=== PATIENT | female | born 1955 | race American Indian/Alaskan Native ===

== ENCOUNTER 2017-05-07 18:23 | Emergency (ER) | payer MEDICARE, OTHER ==
[2017-05-07] MEDS ORDERED: PERCOCET 5/325 PO ONE (19:25)
--- NOTE | 2017-05-07 19:25 | Emergency Department Report ---
ED General Adult HPI - General Chief complaint: Pain General Stated complaint: EXTREMITY PAIN Time Seen by Provider: 05/07/17 18:50 Source: patient, EMS (ems notes not available at time of chart dictation), RN notes reviewed, old records reviewed Mode of arrival: Stretcher Limitations: Physical Limitation - History of Present Illness Initial comments: This is a 62-year-old female. She is previously known to me. Nephrology: Dr. Herrmann Past medical history: End-stage renal disease on dialysis Friday, Friday, Friday. Last dialysis was today, normal length and duration. Has a right- sided thoracic fall dialysis access catheter, also has a history of sacral ulcer , paraplegia, chronic extremity pain, and neuropathy. The patient presents to the ER with complaint of acute on chronic hand, forearm , shoulder pain. She reports that she ran out of her Neurontin and [place] prescriptions yesterday. She denies headache, neck pain, chest pain, abdominal pain, shortness of breath, irritative/obstructive urinary symptoms. The pain is described as "throbbing" and "burning", increases with palpation and range of motion, decreases with rest and pain medication. -: Gradual Location: left, right, upper extremity Radiation: extremity Quality: burning, aching Consistency: constant Improves with: medication, rest Worsens with: movement Associated Symptoms: denies other symptoms - Related Data Home Medications Medication Instructions Recorded Confirmed Last Taken Levothyroxine [Synthroid] 25 mcg PO QDAY 06/19/16 09/17/16 09/16/16 Carvedilol [Coreg] 5 mg PO BID 09/17/16 09/17/16 09/16/16 Previous Rx's Medication Instructions Recorded Last Taken Type Calcium Carbonate [Tums] 1,000 mg PO TID #30 tablet 06/26/16 09/16/16 Rx Gabapentin [Neurontin] 600 mg PO TID #90 capsule 05/07/17 Unknown Rx HYDROcodone/APAP 7.5-325 [[place] 7.5 mg PO Q4H PRN #15 tablet 05/07/17 Unknown Rx 7.5-325 mg TAB] Allergies Allergy/AdvReac Type Severity Reaction Status Date / Time diphenhydramine HCl Allergy Nausea Verified 09/16/16 21:11 [From Benadryl] Penicillins Allergy Unknown Verified 06/19/16 11:30 ED Review of Systems ROS: Stated complaint: EXTREMITY PAIN Other details as noted in HPI ED Past Medical Hx - Past Medical History Previous Medical History?: Yes Hx Hypertension: Yes Hx Congestive Heart Failure: Yes Hx Diabetes: Yes Hx Renal Disease: Yes (ESRD) Hx Seizures: Yes Hx Asthma: No Hx COPD: No Hx HIV: No Additional medical history: thyroid dz dialysis MWF - Surgical History Past Surgical History?: Yes Additional Surgical History: peritoneal dialysis, parathyroid removed, and right thyroid removed per family - Social History Smoking Status: Never Smoker Substance Use Type: None - Medications Home Medications: Home Medications Medication Instructions Recorded Confirmed Last Taken Type Levothyroxine [Synthroid] 25 mcg PO QDAY 06/19/16 09/17/16 09/16/16 History Calcium Carbonate [Tums] 1,000 mg PO TID #30 tablet 06/26/16 09/17/16 09/16/16 Rx Carvedilol [Coreg] 5 mg PO BID 09/17/16 09/17/16 09/16/16 History Gabapentin [Neurontin] 600 mg PO TID #90 capsule 05/07/17 Unknown Rx HYDROcodone/APAP 7.5-325 [[place] 7.5 mg PO Q4H PRN #15 tablet 05/07/17 Unknown Rx 7.5-325 mg TAB] ED Physical Exam - General Limitations: Physical Limitation General appearance: alert, in no apparent distress - Head Head exam: Present: atraumatic, normocephalic - Eye Eye exam: Present: normal appearance, EOMI. Absent: nystagmus - ENT ENT exam: Present: normal exam, normal orophraynx, mucous membranes moist, normal external ear exam - Neck Neck exam: Present: normal inspection, full ROM. Absent: tenderness - Respiratory Respiratory exam: Present: normal lung sounds bilaterally, other (there is a right-sided thoracic wall dialysis access catheter noted. There is no redness, pus or streaking.). Absent: respiratory distress, wheezes, rales, rhonchi, stridor, chest wall tenderness - Cardiovascular Cardiovascular Exam: Present: regular rate, normal rhythm, systolic murmur ( there is a 2/6 systolic murmur, heard best at the right and left second intercostal spaces, consistent with patient's known history of aortic stenosis) . Absent: diastolic murmur, rubs, gallop - GI/Abdominal GI/Abdominal exam: Present: soft, normal bowel sounds. Absent: distended, tenderness, guarding, rebound, rigid, pulsatile mass - Rectal Rectal exam: Present: normal inspection, other (no obvious ulcers at this time. No breakdown. No redness. Escorted by ER glass enamel mixer hydraulic controls technician Chacha Flores) - Extremities Exam Extremities exam: Present: normal inspection, normal capillary refill, pedal edema, other (patient is paralyzed from the waist down. 2+ pulses are noted in the bilateral upper and lower extremities. The compartments are soft. There is no redness, pus or streaking in the bilateral upper extremities. Patient has contractures in her bilateral upper hands and extremities. 5 out of 5 material flow analyst strength. Appropriate passive range of motion in the bilateral shoulders, elbows, wrists. No bony tenderness.). Absent: joint swelling, calf tenderness - Back Exam Back exam: Present: normal inspection. Absent: tenderness, paraspinal tenderness - Neurological Exam Neurological exam: Present: alert, oriented X3, motor sensory deficit (chronic weakness in the bilateral lower extremities) - Psychiatric Psychiatric exam: Present: normal affect, normal mood - Skin Skin exam: Present: warm, dry, intact, normal color. Absent: rash ED Course Vital Signs 05/07/17 05/07/17 05/07/17 18:29 18:34 18:38 Temperature 98.1 F Respiratory 16 Rate Blood Pressure 186/77 O2 Sat by Pulse 99 Oximetry ED Medical Decision Making - Lab Data Vital Signs 05/07/17 05/07/17 05/07/17 18:29 18:34 18:38 Temperature 98.1 F Respiratory 16 Rate Blood Pressure 186/77 O2 Sat by Pulse 99 Oximetry - Medical Decision Making Differential diagnosis: Chronic pain syndrome, hypertension, chronic end-stage renal disease, arthritis, neuropathic pain Assessment and plan: [id number] female with chronic neuropathic extremity pain. She is afebrile with hypertension but otherwise reassuring vital signs. She is neurovascularly intact, with no clinical indication of fracture, dislocation, cellulitis, compartment syndrome or myositis. She received dialysis today. I will refill the patient's Neurontin, and because of her paralysis and disability, I will give her a one-time refill on her [place] prescription. She is instructed to follow-up with her outpatient primary care doctor or coke crane operator for her hypertension. She will be discharged at this time, return precautions are reviewed. Critical care attestation.: If time is entered above; I have spent that time in minutes in the direct care of this critically ill patient, excluding procedure time. ED Disposition Clinical Impression: Chronic pain, ESRD (end stage renal disease) on dialysis Disposition: TO HOME OR SELFCARE Is pt being admited?: No Does the pt Need Aspirin: No Condition: Stable Additional Instructions: Continue current outpatient medications. Follow up with her primary care doctor or coke crane operator within the next week. Blood pressure is elevated today. It is very important to closely follow up with her outpatient physicians for elevated blood pressure, as long-term, cases of hypertension and elevated blood pressure can cause stroke, disability, heart attack paralysis, loss of quality of life. As a courtesy, I will refill a [place] prescription as a single time, but in the future, it is essential to follow-up with either her primary care doctor or pain specialist to have narcotic/opiate prescriptions administered. Return to the ER right away with new pain, worsened pain, migration of pain, fevers, chills, confusion, intractable nausea or vomiting, inability to tolerate liquid feeds. Prescriptions: Gabapentin [Neurontin] 600 mg PO TID #90 capsule HYDROcodone/APAP 7.5-325 [[place] 7.5-325 mg TAB] 7.5 mg PO Q4H PRN #15 tablet PRN Reason: Pain Referrals: RUSSEL ZAMBRANO MD [Primary Care Provider] - 3-5 Days MIKE HERRMANN MD [Staff Physician] - 3-5 Days
[2017-05-07 21:14] VITALS: BP 176/63
== END 2017-05-07 22:16 | disposition home or self-care (01) ==
LOC: ED 18:23
DX: I12.0 Hypertensive chronic kidney disease with stage 5 chronic kidney disease or end stage renal disease (principal); E11.22 Type 2 diabetes mellitus with diabetic chronic kidney disease; I50.9 Heart failure, unspecified; N18.6 End stage renal disease; G89.29 Other chronic pain; Z99.2 Dependence on renal dialysis; Z88.0 Allergy status to penicillin; Z88.8 Allergy status to other drugs, medicaments and biological substances
CPT/HCPCS: 99283

== ENCOUNTER 2020-05-20 19:02 | Emergency (ER) | payer MEDICARE, OTHER ==
[2020-05-20] MEDS ORDERED: HYDROcodone/ACETAMINOPHEN 10-325MG TAB PO ONE (20:30)
--- NOTE | 2020-05-20 20:30 | Emergency Department Report ---
ED General Adult HPI - General Chief complaint: Pain General Stated complaint: MED REFILL PUI?: No Time Seen by Provider: 05/20/20 20:23 Source: patient, EMS, old records reviewed Mode of arrival: Stretcher Limitations: No Limitations - History of Present Illness Initial comments: CC: "I have chronic pain." HPI: This is a 65 yo female with hx of ESRD, seizure disorder, diabetes mellitus, hypothyroidism who presents with pain all over. Patient requests refill of hydrocodone and gabapentin. She explained that she and her were dismissed by her primary physician due to a conflict in interest. She has pain in her "upper body". She does not have a known daignosis of fibromyalgia or arthropahty. According to her report. She has made multiple phone calls obtain a new primary care physician. She has been unsuccessful. -: Gradual, days(s) (3) Location: back, left, right, upper extremity Severity scale (0 -10): 7 Quality: aching Consistency: constant Improves with: medication Treatments Prior to Arrival: other (Transport per EMS) - Related Data Home Medications Medication Instructions Recorded Confirmed Last Taken Levothyroxine [Synthroid] 25 mcg PO QDAY 06/19/16 08/17/17 08/15/17 carvediloL [Coreg] 5 mg PO BID 09/17/16 08/17/17 08/15/17 Previous Rx's Medication Instructions Recorded Last Taken Type Calcium Carbonate [Tums 500MG CHEW] 1,000 mg PO TID #30 tablet 06/26/16 09/16/16 Rx Gabapentin 600 mg PO TID #90 capsule 05/07/17 08/16/17 Rx HYDROcodone/APAP 7.5-325 [[place] 7.5 mg PO Q4H PRN #15 tablet 05/07/17 08/16/17 Rx 7.5-325 mg TAB] Docusate Sodium [Colace] 100 mg PO BID #60 capsule 08/19/17 Unknown Rx levoFLOXacin [Levaquin TAB] 500 mg PO Q48H #4 tablet 08/19/17 Unknown Rx metroNIDAZOLE [Flagyl] 500 mg PO Q8HR #20 tablet 08/19/17 Unknown Rx Allergies Allergy/AdvReac Type Severity Reaction Status Date / Time diphenhydramine HCl Allergy Nausea Verified 08/17/17 02:51 [From Benadryl] Penicillins Allergy Unknown Verified 08/17/17 02:51 ED Review of Systems ROS: Stated complaint: MED REFILL Other details as noted in HPI Comment: All other systems reviewed and negative Constitutional: denies: fever, malaise Respiratory: denies: cough, shortness of breath Gastrointestinal: denies: abdominal pain, nausea, vomiting ED Past Medical Hx - Past Medical History Previous Medical History?: Yes Hx Hypertension: Yes Hx Congestive Heart Failure: Yes Hx Diabetes: Yes Hx Renal Disease: Yes (ESRD) Hx Seizures: Yes Hx Asthma: No Hx COPD: No Hx HIV: No Additional medical history: thyroid dz, dialysis MWF - Surgical History Past Surgical History?: Yes Additional Surgical History: peritoneal dialysis, parathyroid removed, and right thyroid removed per family - Social History Smoking Status: Never Smoker - Medications Home Medications: Home Medications Medication Instructions Recorded Confirmed Last Taken Type Levothyroxine [Synthroid] 25 mcg PO QDAY 06/19/16 08/17/17 08/15/17 History Calcium Carbonate [Tums 500MG CHEW] 1,000 mg PO TID #30 tablet 06/26/16 08/17/17 09/16/16 Rx carvediloL [Coreg] 5 mg PO BID 09/17/16 08/17/17 08/15/17 History Gabapentin 600 mg PO TID #90 capsule 05/07/17 08/17/17 08/16/17 Rx HYDROcodone/APAP 7.5-325 [[place] 7.5 mg PO Q4H PRN #15 tablet 05/07/17 08/17/17 08/16/17 Rx 7.5-325 mg TAB] Docusate Sodium [Colace] 100 mg PO BID #60 capsule 08/19/17 Unknown Rx levoFLOXacin [Levaquin TAB] 500 mg PO Q48H #4 tablet 08/19/17 Unknown Rx metroNIDAZOLE [Flagyl] 500 mg PO Q8HR #20 tablet 08/19/17 Unknown Rx ED Physical Exam - General Limitations: No Limitations General appearance: alert, in no apparent distress, other (Appears chronically ill, appears frail, no acute distress) - Head Head exam: Present: atraumatic, normocephalic - Eye Eye exam: Present: normal appearance - ENT ENT exam: Present: mucous membranes moist - Neck Neck exam: Present: normal inspection, full ROM - Respiratory Respiratory exam: Present: normal lung sounds bilaterally. Absent: respiratory distress, wheezes, rales, rhonchi - Cardiovascular Cardiovascular Exam: Present: regular rate, normal rhythm. Absent: systolic murmur, diastolic murmur, rubs, gallop - GI/Abdominal GI/Abdominal exam: Present: soft, normal bowel sounds. Absent: distended, tenderness, guarding, rebound - Extremities Exam Extremities exam: Present: normal inspection - Neurological Exam Neurological exam: Present: alert, oriented X3 - Psychiatric Psychiatric exam: Present: normal affect, normal mood - Skin Skin exam: Present: warm, dry ED Course Vital Signs 05/20/20 19:36 Temperature 97.9 F Pulse Rate 71 Respiratory 16 Rate Blood Pressure 170/62 O2 Sat by Pulse 97 Oximetry ED Medical Decision Making - Medical Decision Making Ms. Lima requests refill of hydrocodone and gabapentin for "chronic pain". I tried to explain that refilling these medications were inappropriate in the emergency department. I have referred patient to our outpatient medicine physician. Patient received 1 dose hydrocodone here in the emergency de partment. I recommended calling her healthcare insurance sales specialist for referral to pain management. Critical care attestation.: If time is entered above; I have spent that time in minutes in the direct care of this critically ill patient, excluding procedure time. ED Disposition Clinical Impression: Chronic pain Disposition: DC-01 TO HOME OR SELFCARE Is pt being admited?: No Does the pt Need Aspirin: No Condition: Stable Referrals: VANNESA COSTA MD [Staff Physician] - 3-5 Days
[2020-05-20 22:45] VITALS: BP 188/71
== END 2020-05-20 22:20 | disposition home or self-care (01) ==
LOC: ED 19:02
DX: G89.29 Other chronic pain (principal); M54.6 Pain in thoracic spine; M79.602 Pain in left arm; M79.601 Pain in right arm; I50.9 Heart failure, unspecified; I11.0 Hypertensive heart disease with heart failure; E11.9 Type 2 diabetes mellitus without complications; R56.9 Unspecified convulsions; Z98.890 Other specified postprocedural states; Z79.899 Other long term (current) drug therapy; Z88.8 Allergy status to other drugs, medicaments and biological substances; Z88.0 Allergy status to penicillin

== ENCOUNTER 2020-11-12 21:07 | Emergency (ER) | payer MEDICARE ==
[2020-11-12] MEDS ORDERED: MORPHINE 4 MG/1 ML INJ IV ONE (22:46)
[2020-11-12] MEDS ORDERED: hydrALAZINE 20 MG/1 ML INJ IV ONE (22:47)
--- NOTE | 2020-11-12 22:51 | Emergency Department Report ---
HPI - General Chief Complaint: Extremity Injury, Upper Time Seen by Provider: 11/12/20 22:28 - HPI HPI: This is a 65-year-old -[place] female presents to the emergency department via EMS from home with complaint of a 3-day history of bilateral upp er extremity pain. She denies any swelling of the extremities, rash, skin color change. She has not taken anything for symptoms prior to presentation. She says it is currently 7 out of 10 in intensity. It worsens with any attempt at movement. She has a past medical history that includes CHF, hypertension, thyroid disease, previous DVT, and end-stage renal disease on hemodialysis on Friday/Friday/Friday. She denies any fever, chest pain, shortness of breath, nausea, vomiting. No recent travel or sick contacts at home. Her fur trapper is Dr. Wright. Patient says that her upper extremities are contracted and she has lower extremity paraplegia. ED Past Medical Hx - Past Medical History Previous Medical History?: Yes Hx Hypertension: Yes Hx Congestive Heart Failure: Yes Hx Diabetes: Yes Hx Deep Vein Thrombosis: Yes (bilateral arms) Hx Renal Disease: Yes (ESRD) Hx Seizures: Yes Hx Asthma: No Hx COPD: No Hx HIV: No Additional medical history: thyroid dz, dialysis MWF - Surgical History Past Surgical History?: Yes Additional Surgical History: peritoneal dialysis, parathyroid removed, and right thyroid removed per family - Social History Smoking Status: Never Smoker Substance Use Type: None - Medications Home Medications: Home Medications Medication Instructions Recorded Confirmed Last Taken Type Levothyroxine [Synthroid] 25 mcg PO QDAY 06/19/16 08/17/17 08/15/17 History Calcium Carbonate [Tums 500MG CHEW] 1,000 mg PO TID #30 tablet 06/26/16 08/17/17 09/16/16 Rx carvediloL [Coreg] 5 mg PO BID 09/17/16 08/17/17 08/15/17 History Gabapentin 600 mg PO TID #90 capsule 05/07/17 08/17/17 08/16/17 Rx Docusate Sodium [Colace] 100 mg PO BID #60 capsule 08/19/17 Unknown Rx levoFLOXacin [Levaquin TAB] 500 mg PO Q48H #4 tablet 08/19/17 Unknown Rx metroNIDAZOLE [Flagyl] 500 mg PO Q8HR #20 tablet 08/19/17 Unknown Rx HYDROcodone/APAP 5-325 [[place] 1 each PO Q6HR PRN #6 tablet 11/13/20 Unknown Rx 5/325] ED Review of Systems ROS: Stated complaint: UPPER BODY PAIN Other details as noted in HPI Comment: All other systems reviewed and negative Constitutional: denies: chills, fever Eyes: denies: eye pain, vision change ENT: denies: ear pain, throat pain Respiratory: denies: cough, shortness of breath Cardiovascular: denies: chest pain, palpitations Gastrointestinal: denies: abdominal pain, vomiting Genitourinary: denies: dysuria, discharge Musculoskeletal: arthralgia, myalgia. denies: joint swelling Skin: denies: rash, lesions Neurological: denies: numbness, paresthesias Physical Exam - Physical Exam Vital Signs: Vital Signs 11/12/20 11/12/20 21:56 22:26 Temperature 97.4 F L Pulse Rate 81 82 Respiratory 16 21 Rate Blood Pressure 210/80 Blood Pressure 215/82 [Left] O2 Sat by Pulse 100 99 Oximetry Physical Exam: GENERAL: The patient does not appear in any acute distress. HENT: Normocephalic. Atraumatic. Patient has moist mucous membranes. EYES: Extraocular motions are intact. NECK: Supple. Trachea is midline. CHEST/LUNGS: Clear to auscultation. There is no respiratory distress noted. HEART/CARDIOVASCULAR: Regular. There is no tachycardia. There is no murmur. ABDOMEN: Abdomen is soft, nontender. Patient has normal bowel sounds. There is no abdominal distention. SKIN: Skin is warm and dry. NEURO: The patient is awake, alert, and oriented. The patient is cooperative. The patient has no focal neurologic deficits. Normal speech. MUSCULOSKELETAL: There is some reproducible tenderness to palpation along the bilateral upper extremities but no obvious deformity. Radial pulse +2/4 and capillary refill less than 2 seconds bilaterally. ED Course Vital Signs 11/12/20 11/12/20 21:56 22:26 Temperature 97.4 F L Pulse Rate 81 82 Respiratory 16 21 Rate Blood Pressure 210/80 Blood Pressure 215/82 [Left] O2 Sat by Pulse 100 99 Oximetry - Reevaluation(s) Reevaluation #1: 11/12/20 22:50 Filled ID Written Drug QTY Days Prescriber Rx # Pharmacy * Refills Daily Dose Pymt Type CUPOLA [facility]ER 11/08/2020 2 11/07/2020 OXYCODONE-ACETAMINOPHEN 5-325 4.0 1 AN BRADY [id number] [facility] ([id number]) 0 30.0 [place] 10/19/2020 1 10/19/2020 OXYCODONE-ACETAMINOPHEN 5-325 10.0 4 AL TAG [id number] [facility] ([id number]) 0 18.75 MME [place] 09/29/2020 2 09/29/2020 OXYCODON-ACETAMINOPHEN 7.5-325 10.0 5 VA COU [id number] [facility] ([id number]) 0 22.5 MME [place] 09/23/2020 2 09/23/2020 TRAMADOL HCL 50 MG TABLET 12.0 3 PA BRA [id number] [facility] ([id number]) 0 20.0 MME [place] 09/19/2020 2 09/19/2020 OXYCODONE-ACETAMINOPHEN 10-325 15.0 7 PO SUN [id number] [facility] ([id number]) 0 32.14 [place] 09/05/2020 2 08/27/2020 BELBUCA 300 MCG FILM 60.0 30 VYA [id number] [facility] ([id number]) 0 0.6 mg [place] 09/03/2020 2 09/02/2020 OXYCODONE-ACETAMINOPHEN 10-325 10.0 2 RO SIN [id number] [facility] ([id number]) 0 75.0 [place] 08/31/2020 2 08/31/2020 OXYCODONE-ACETAMINOPHEN 10-325 10.0 3 LO DHA [id number] [facility] ([id number]) 0 50.0 [place] 08/22/2020 2 08/21/2020 OXYCODONE-ACETAMINOPHEN 10-325 24.0 8 VINOD MADHU [id number] [facility] ([id number]) 0 45.0 [place] 08/12/2020 2 08/12/2020 OXYCODONE-ACETAMINOPHEN 5-325 20.0 6 [place] OSB [id number] [facility] ([id number]) 0 25.0 [place] ED Medical Decision Making - Lab Data Result diagrams: 11/12/20 23:16 11/12/20 23:16 Lab Results 11/12/20 11/12/20 Range/Units 23:16 23:16 WBC 8.7 (4.5-11.0) K/mm3 RBC 3.14 L (3.65-5.03) M/mm3 Hgb 10.5 (10.1-14.3) gm/dl Hct 32.4 (30.3-42.9) % MCV 103 H (79-97) fl MCH 34 H (28-32) pg MCHC 33 (30-34) % RDW 18.7 H (13.2-15.2) % Plt Count 175 (140-440) K/mm3 Lymph % (Auto) 6.2 L (13.4-35.0) % [place] % (Auto) 8.2 H (0.0-7.3) % Eos % (Auto) 3.7 (0.0-4.3) % Baso % (Auto) 0.5 (0.0-1.8) % Lymph # (Auto) 0.5 L (1.2-5.4) K/mm3 [place] # (Auto) 0.7 (0.0-0.8) K/mm3 Eos # (Auto) 0.3 (0.0-0.4) K/mm3 Baso # (Auto) 0.0 (0.0-0.1) K/mm3 Seg Neutrophils % 81.4 H (40.0-70.0) % Seg Neutrophils # 7.1 (1.8-7.7) K/mm3 Sodium 143 (137-145) mmol/L Potassium 3.5 L (3.6-5.0) mmol/L Chloride 105.6 (98-107) mmol/L Carbon Dioxide 20 L (22-30) mmol/L Anion Gap 21 mmol/L BUN 37 H (7-17) mg/dL Creatinine 5.8 H (0.6-1.2) mg/dL Estimated GFR 9 ml/min BUN/Creatinine Ratio 6 % Glucose 131 H (65-100) mg/dL Calcium 8.4 (8.4-10.2) mg/dL Total Bilirubin 0.30 (0.1-1.2) mg/dL AST 17 (5-40) units/L ALT 8 (7-56) units/L Alkaline Phosphatase 154 H (35-129) units/L Total Protein 6.3 (6.3-8.2) g/dL Albumin 3.5 L (3.9-5) g/dL Albumin/Globulin Ratio 1.3 % Lipase 18 (13-60) units/L - EKG Data -: EKG Interpreted by Me EKG shows normal: sinus rhythm, axis, intervals (Left axis deviation), QRS c omplexes (LVH, Q waves to the inferior and septal leads), ST-T waves Rate: normal - EKG Data When compared to previous EKG there are: no significant change Interpretation: unchanged when compared t (09/16/16) - Medical Decision Making This patient presents to the emergency department with a complaint of a 2 to 3- day history of bilateral upper extremity pain that is nontraumatic. She denies any swelling, rash or lesions, skin color change, and this appears to on examination. On examination there is some mild reproducible tenderness to palpation but once again no obvious deformity. No crepitus. She appears neurovascularly intact with +2/4 radial pulses bilaterally and capillary refill less than 2 seconds. Her labs were mostly unremarkable including CBC and metabolic panel. There is some renal insufficiency consistent with her end-stage renal disease on hemodialysis. She is due for hemodialysis in the morning. She was given a single dose of oral analgesia and upon reevaluation she is feeling greatly improved. She is seen resting comfortably throughout her ED course. Patient did present with very elevated blood pressure but it came down to a more reasonable level with a dose of antihypertensive medication and pain control. For this reason she appears safe for discharge home at this time. She has been given outpatient referral for orthopedists if the arm pain were to return. She is going to follow-up with her normal dialysis schedule. She will return to the emergency department with any worsening of her symptoms or with any acute distress. Critical Care Time: No Critical care attestation.: If time is entered above; I have spent that time in minutes in the direct care of this critically ill patient, excluding procedure time. ED Disposition Clinical Impression: Bilateral arm pain, ESRD (end stage renal disease) on dialysis Hypertension Qualifiers: Hypertension type: essential hypertension Qualified Code(s): I10 - Essential (primary) hypertension Disposition: TO HOME OR SELFCARE Is pt being admited?: No Condition: Stable Instructions: Dialysis, Pain Without a Known Cause, Hypertension, Adult, Hypertension (ED) Additional Instructions: Please follow-up with your primary care physician in the next few days. Continue with your normal dialysis regiment and follow-up with your fur trapper as needed. I am giving you a referral for a local orthopedist, Dr. Chapman, to follow-up regarding your arm pain. You have been prescribed a medication that is sedating and therefore should not be taken prior to driving, working, and responsible for children and in no way should be mixed with alcohol of any quantity. Return to the emergency department with any worsening of your symptoms, new or concerning symptoms not addressed during this current emergency department visit, or with any acute distress. Prescriptions: HYDROcodone/APAP 5-325 [[place] 5/325] 1 each PO Q6HR PRN #6 tablet PRN Reason: Pain Referrals: [facility] [Provider Group] - 2-3 Days CHINMAY YANG MD [Staff Physician] - 2-3 Days PRIMARY CAREMD [Referring] - 2-3 Days SKYLA CHAPMAN MD [Staff Physician] - 2-3 Days Time of Disposition: 02:07
[2020-11-12] MEDS ORDERED: cloNIDine 0.2 MG TAB PO ONE (23:18)
[2020-11-12 23:26] LABS: Basophils % (Auto) 0.5 % (0.0-1.8); Eosinophils # (Auto) 0.3 K/mm3 (0.0-0.4); Eosinophils % (Auto) 3.7 % (0.0-4.3); Hematocrit 32.4 % (30.3-42.9); Hemoglobin 10.5 gm/dl (10.1-14.3); Lymphocytes # (Auto) 0.5 K/mm3 (1.2-5.4); Lymphocytes % (Auto) 6.2 % (13.4-35.0); Mean Corpuscular HGB Conc 33 % (30-34); Mean Corpuscular Volume 103 fl (79-97); Monocytes # (Auto) 0.7 K/mm3 (0.0-0.8); Monocytes % (Auto) 8.2 % (0.0-7.3); Platelet Count 175 K/mm3 (140-440); Red Blood Count 3.14 M/mm3 (3.65-5.03); Red Cell Distribution Width 18.7 % (13.2-15.2)
[2020-11-12 23:41] LABS: Albumin 3.5 g/dL (3.9-5); Calcium 8.4 mg/dL (8.4-10.2)
[2020-11-12] MEDS ORDERED: oxyCODONE /ACETAMINOPHEN 5-325MG TAB PO ONE (23:42)
[2020-11-13] MEDS ORDERED: hydrALAZINE 20 MG/1 ML INJ IV ONE (00:49)
[2020-11-13 01:08] VITALS: BP 167/76
== END 2020-11-13 04:35 | disposition home or self-care (01) ==
LOC: ED 21:07
DX: I13.2 Hypertensive heart and chronic kidney disease with heart failure and with stage 5 chronic kidney disease, or end stage renal disease (principal); I50.9 Heart failure, unspecified; E11.22 Type 2 diabetes mellitus with diabetic chronic kidney disease; N18.6 End stage renal disease; M79.601 Pain in right arm; M79.602 Pain in left arm; R56.9 Unspecified convulsions; Z99.2 Dependence on renal dialysis; Z98.890 Other specified postprocedural states; Z79.2 Long term (current) use of antibiotics; Z79.899 Other long term (current) drug therapy; Z88.0 Allergy status to penicillin; Z88.8 Allergy status to other drugs, medicaments and biological substances
CPT/HCPCS: 36415; 80053; 83690; 85025; 93005

== ENCOUNTER 2020-11-15 13:50 | Emergency (ER) | payer MEDICARE ==
[2020-11-15] MEDS ORDERED: HYDROcodone/ACETAMINOPHEN 5-325 MG TAB PO ONE (14:17)
[2020-11-15] MEDS ORDERED: cloNIDine 0.2 MG TAB PO ONE ×2 (14:19→19:37)
--- NOTE | 2020-11-15 14:22 | Emergency Department Report ---
HPI - General Chief Complaint: Weakness Time Seen by Provider: 11/15/20 14:03 - HPI HPI: Room 40 The patient is a 65-year-old female present with a chief complaint of bilateral upper extremity pain. The patient states for the past 3 months she has had intermittent pain of bilateral upper extremities. Patient has seen her physician has not been given any diagnoses. Patient admits to burning her right index finger that heating pad 3 months ago. Patient denies any other complaints. ED Past Medical Hx - Past Medical History Hx Hypertension: Yes Hx Congestive Heart Failure: Yes Hx Diabetes: Yes Hx Deep Vein Thrombosis: Yes (bilateral arms) Hx Renal Disease: Yes (ESRD) Hx Seizures: Yes Additional medical history: thyroid dz, dialysis MWF - Surgical History Additional Surgical History: peritoneal dialysis, parathyroid removed, and right thyroid removed per family - Family History Family history: no significant - Social History Smoking Status: Former Smoker Substance Use Type: None - Medications Home Medications: Home Medications Medication Instructions Recorded Confirmed Last Taken Type Levothyroxine [Synthroid] 25 mcg PO QDAY 06/19/16 08/17/17 08/15/17 History Calcium Carbonate [Tums 500MG CHEW] 1,000 mg PO TID #30 tablet 06/26/16 08/17/17 09/16/16 Rx carvediloL [Coreg] 5 mg PO BID 09/17/16 08/17/17 08/15/17 History Gabapentin 600 mg PO TID #90 capsule 05/07/17 08/17/17 08/16/17 Rx Docusate Sodium [Colace] 100 mg PO BID #60 capsule 08/19/17 Unknown Rx levoFLOXacin [Levaquin TAB] 500 mg PO Q48H #4 tablet 08/19/17 Unknown Rx metroNIDAZOLE [Flagyl] 500 mg PO Q8HR #20 tablet 08/19/17 Unknown Rx HYDROcodone/APAP 5-325 [[place] 1 each PO Q6HR PRN #6 tablet 11/13/20 Unknown Rx 5/325] ED Review of Systems ROS: Stated complaint: BODY PAIN Other details as noted in HPI Constitutional: no symptoms reported Eyes: denies: eye pain ENT: denies: throat pain Respiratory: no symptoms reported Cardiovascular: denies: chest pain Endocrine: no symptoms reported Gastrointestinal: denies: abdominal pain Musculoskeletal: arthralgia Skin: lesions Physical Exam - Physical Exam Vital Signs: Vital Signs 11/15/20 11/15/20 13:59 14:11 Temperature 98.2 F Pulse Rate 53 L Respiratory 18 18 Rate Blood Pressure 200/56 O2 Sat by Pulse 100 Oximetry Physical Exam: GENERAL: The patient is well-developed well-nourished []. [] HEENT: Normocephalic. Atraumatic. Extraocular motions are intact. Patient has moist mucous membranes. NECK: Supple. Trachea midline CHEST/LUNGS: Clear to auscultation. There is no respiratory distress noted. HEART/CARDIOVASCULAR: Regular. There is no tachycardia. There is a 4/6 systolic murmur ABDOMEN: Abdomen is soft, nontender. Patient has normal bowel sounds. There is no abdominal distention. SKIN: There is no rash. There is no edema. There is no diaphoresis. Chronic appearing scab overlying right index finger at PIP NEURO: The patient is awake, alert, and oriented. The patient is cooperative. The patient has no focal neurologic deficits. The patient has normal speech MUSCULOSKELETAL: There is no evidence of acute injury. ED Course Vital Signs 11/15/20 11/15/20 13:59 14:11 Temperature 98.2 F Pulse Rate 53 L Respiratory 18 18 Rate Blood Pressure 200/56 O2 Sat by Pulse 100 Oximetry ED Medical Decision Making - Medical Decision Making Phlebotomy unable to find site to draw blood is right upper extremity is all limited secondary to hemodialysis access. I offered to do a fem stick to clip blood for labs however the patient refuses. Patient leaving AMA - Differential Diagnosis Myalgias, ESRD, hypothyroidism Critical care attestation.: If time is entered above; I have spent that time in minutes in the direct care of this critically ill patient, excluding procedure time. ED Disposition Clinical Impression: Bilateral arm pain Disposition: - LEFT AGAINST MED ADVICE Is pt being admited?: No Does the pt Need Aspirin: No Condition: Undetermined Time of Disposition: 15:40 (Patient leaving AMA)
[2020-11-15] MEDS ORDERED: LIDOCAINE (1%) 10 MG/1 ML VIAL 20 ML MDV INFILTRATI ONE (15:34)
[2020-11-15] MEDS ORDERED: hydrALAZINE 20 MG/1 ML INJ IM ONE (16:56)
[2020-11-15 17:07] LABS: Basophils # (Auto) 0.1 K/mm3 (0.0-0.1); Basophils % (Auto) 1.1 % (0.0-1.8); Eosinophils # (Auto) 0.2 K/mm3 (0.0-0.4); Eosinophils % (Auto) 4.2 % (0.0-4.3); Hematocrit 29.8 % (30.3-42.9); Hemoglobin 9.6 gm/dl (10.1-14.3); Lymphocytes # (Auto) 0.7 K/mm3 (1.2-5.4); Lymphocytes % (Auto) 12.8 % (13.4-35.0); Mean Corpuscular HGB Conc 32 % (30-34); Mean Corpuscular Volume 106 fl (79-97); Monocytes # (Auto) 0.6 K/mm3 (0.0-0.8); Monocytes % (Auto) 10.5 % (0.0-7.3); Platelet Count 151 K/mm3 (140-440); Red Blood Count 2.82 M/mm3 (3.65-5.03); Red Cell Distribution Width 18.5 % (13.2-15.2)
[2020-11-15 17:42] LABS: Calcium 8.2 mg/dL (8.4-10.2)
[2020-11-15 19:08] LABS: Free T4 (Free Thyroxine) 1.16 ng/dL (0.76-1.46)
[2020-11-15] MEDS: ACETAMINOPHEN 325 MG TAB PO ONE ×2 (19:46→19:49)
[2020-11-15 21:01] VITALS: BP 195/60
== END 2020-11-15 23:11 | disposition home or self-care (01) ==
LOC: ED 13:50
DX: M79.601 Pain in right arm (principal); M79.602 Pain in left arm; I13.2 Hypertensive heart and chronic kidney disease with heart failure and with stage 5 chronic kidney disease, or end stage renal disease; I50.9 Heart failure, unspecified; N18.6 End stage renal disease; E11.22 Type 2 diabetes mellitus with diabetic chronic kidney disease; Z79.899 Other long term (current) drug therapy; Z88.0 Allergy status to penicillin; Z88.8 Allergy status to other drugs, medicaments and biological substances; Z87.891 Personal history of nicotine dependence; Z86.69 Personal history of other diseases of the nervous system and sense organs; Z98.890 Other specified postprocedural states
CPT/HCPCS: 36415; 80048; 84439; 84443; 85025; 96372; 99284; J0360

== ENCOUNTER 2020-12-13 14:52 | Emergency (ER) | payer MEDICARE ==
[2020-12-13 15:16] VITALS: BP 141/57
--- NOTE | 2020-12-13 17:09 | XRay Report ---
ABDOMEN 1 VIEW(S) INDICATION / CLINICAL INFORMATION: constipation. COMPARISON: None available. FINDINGS: TUBES / LINES: None. BOWEL GAS PATTERN/EXTRALUMINAL GAS: No dilated loops of bowel. Large volume of stool in the rectum an d colon. No pneumatosis or secondary signs of free air. ADDITIONAL FINDINGS: No significant additional findings. IMPRESSION: 1. Significant constipation without additional acute abnormality. Signer Name: Misael Thompson MD Signed: 12/13/2020 5:05 PM Workstation Name: [id number]
--- NOTE | 2020-12-13 17:14 | Emergency Department Report ---
ED Abdominal Pain HPI - General Chief Complaint: Abdominal Pain Stated Complaint: ABD PAIN Time Seen by Provider: 12/13/20 15:21 Source: EMS Mode of arrival: Stretcher Limitations: No Limitations - History of Present Illness Initial Comments: 65-year-old female, history of ESRD, paraplegia, hypertension, diabetes, hypothyroidism, presents to ED with complaint of abdominal pain x2 weeks. Patient states she is having pain in her lower abdomen. She denies any nausea or vomiting. Patient states she has not had a bowel movement in 2 weeks. MD Complaint: abdominal pain -: week(s) (2) Location: LLQ, RLQ, suprapubic Radiation: none Migration to: no migration Severity: moderate Severity scale (0 -10): 10 Quality: aching Improves With: nothing Worsens With: nothing Associated Symptoms: constipation. denies: nausea, vomiting, diarrhea, fever - Related Data Home Medications Medication Instructions Recorded Confirmed Last Taken Levothyroxine [Synthroid] 25 mcg PO QDAY 06/19/16 08/17/17 08/15/17 carvediloL [Coreg] 5 mg PO BID 09/17/16 08/17/17 08/15/17 Previous Rx's Medication Instructions Recorded Last Taken Type Calcium Carbonate [Tums 500MG CHEW] 1,000 mg PO TID #30 tablet 06/26/16 09/16/16 Rx Gabapentin 600 mg PO TID #90 capsule 05/07/17 08/16/17 Rx levoFLOXacin [Levaquin TAB] 500 mg PO Q48H #4 tablet 08/19/17 Unknown Rx metroNIDAZOLE [Flagyl] 500 mg PO Q8HR #20 tablet 08/19/17 Unknown Rx HYDROcodone/APAP 5-325 [[place] 1 each PO Q6HR PRN #6 tablet 11/13/20 Unknown Rx 5/325] oxyCODONE /ACETAMINOPHEN [Percocet 1 - 2 tab PO Q6HR PRN #10 tablet 11/15/20 Unknown Rx 5/325] Docusate Sodium [Colace CAP] 100 mg PO BID #60 capsule 12/13/20 Unknown Rx Allergies Allergy/AdvReac Type Severity Reaction Status Date / Time diphenhydramine HCl Allergy Nausea Verified 11/15/20 14:10 [From Benadryl] Penicillins Allergy Unknown Verified 11/15/20 14:10 ED Review of Systems ROS: Stated complaint: ABD PAIN Other details as noted in HPI Comment: All other systems reviewed and negative Constitutional: denies: chills, fever Gastrointestinal: abdominal pain, constipation. denies: nausea, vomiting, diarrhea ED Past Medical Hx - Past Medical History Hx Hypertension: Yes Hx Congestive Heart Failure: Yes Hx Diabetes: Yes Hx Deep Vein Thrombosis: Yes (bilateral arms) Hx Renal Disease: Yes (ESRD) Hx Seizures: Yes Hx Asthma: No Hx COPD: No Hx HIV: No Additional medical history: thyroid dz, dialysis MWF, paralysis lower extremities - Surgical History Additional Surgical History: peritoneal dialysis, parathyroid removed, and right thyroid removed per family - Social History Smoking Status: Never Smoker Substance Use Type: None - Medications Home Medications: Home Medications Medication Instructions Recorded Confirmed Last Taken Type Levothyroxine [Synthroid] 25 mcg PO QDAY 06/19/16 08/17/17 08/15/17 History Calcium Carbonate [Tums 500MG CHEW] 1,000 mg PO TID #30 tablet 06/26/16 08/17/17 09/16/16 Rx carvediloL [Coreg] 5 mg PO BID 09/17/16 08/17/17 08/15/17 History Gabapentin 600 mg PO TID #90 capsule 05/07/17 08/17/17 08/16/17 Rx levoFLOXacin [Levaquin TAB] 500 mg PO Q48H #4 tablet 08/19/17 Unknown Rx metroNIDAZOLE [Flagyl] 500 mg PO Q8HR #20 tablet 08/19/17 Unknown Rx HYDROcodone/APAP 5-325 [[place] 1 each PO Q6HR PRN #6 tablet 11/13/20 Unknown Rx 5/325] oxyCODONE /ACETAMINOPHEN [Percocet 1 - 2 tab PO Q6HR PRN #10 tablet 11/15/20 Unknown Rx 5/325] Docusate Sodium [Colace CAP] 100 mg PO BID #60 capsule 12/13/20 Unknown Rx ED Physical Exam - General Limitations: No Limitations General appearance: alert, in no apparent distress - Head Head exam: Present: atraumatic, normocephalic - Eye Eye exam: Present: normal appearance, EOMI - ENT ENT exam: Present: mucous membranes moist - Neck Neck exam: Present: normal inspection - Respiratory Respiratory exam: Present: normal lung sounds bilaterally. Absent: respiratory distress - Cardiovascular Cardiovascular Exam: Present: regular rate, normal rhythm - GI/Abdominal GI/Abdominal exam: Present: soft, tenderness (mild). Absent: distended - Extremities Exam Extremities exam: Present: normal inspection - Neurological Exam Neurological exam: Present: alert, oriented X3 - Psychiatric Psychiatric exam: Present: normal affect, normal mood - Skin Skin exam: Present: warm, dry, intact, normal color ED Course Vital Signs 12/13/20 12/13/20 15:13 16:29 Temperature 97.8 F Pulse Rate 71 Respiratory 17 16 Rate Blood Pressure 141/57 [Left] O2 Sat by Pulse 98 Oximetry - Reevaluation(s) Reevaluation #1: 12/13/20 17:16 Pt refused labs. States she wants to leave AMA. ED Medical Decision Making - Radiology Data Radiology results: report reviewed, image reviewed - Medical Decision Making 65-year-old female presents to ED with abdominal pain and constipation x2 weeks. Patient refused any lab work, decided that she wants to leave AMA. Despite our efforts, Ms. Lima has decided to leave AGAINST MEDICAL ADVICE. She has a normal mental status and full decisional capacity. Patient understands her condition of abdominal pain and constipation and the risks of leaving AMA, including but not limited to permanent disability and , and has had an opportunity to ask questions about her medical condition. The patient has been informed that she may return for care anytime, and has been referred to her PCP for follow-up. - Differential Diagnosis Bowel obstruction, constipation, UTI Critical care attestation.: If time is entered above; I have spent that time in minutes in the direct care of this critically ill patient, excluding procedure time. ED Disposition Clinical Impression: Abdominal pain, Constipation Disposition: - LEFT AGAINST MED ADVICE Is pt being admited?: No Condition: Stable Instructions: Constipation, Adult, [id number], Abdominal Pain (ED) Prescriptions: Docusate Sodium [Colace CAP] 100 mg PO BID #60 capsule Referrals: PRIMARY CARE, [Primary Care Provider] - 3-5 Days Time of Disposition: 17:19
== END 2020-12-13 21:40 | disposition left against medical advice (07) ==
LOC: ED 14:52
DX: K59.00 Constipation, unspecified (principal); I11.0 Hypertensive heart disease with heart failure; I50.9 Heart failure, unspecified; E11.9 Type 2 diabetes mellitus without complications; G40.909 Epilepsy, unspecified, not intractable, without status epilepticus; Z79.899 Other long term (current) drug therapy; Z88.0 Allergy status to penicillin; Z88.8 Allergy status to other drugs, medicaments and biological substances
CPT/HCPCS: 74018; 99283

== ENCOUNTER 2020-12-22 15:24 | Observation (INO) | payer MEDICARE ==
--- NOTE | 2020-12-22 16:45 | Emergency Department Report ---
ED Altered Mental Status HPI - General Chief Complaint: High BP Stated Complaint: AMS Time Seen by Provider: 12/22/20 16:29 Source: patient, EMS, old records reviewed Mode of arrival: Stretcher Limitations: Altered Mental Status - History of Present Illness Initial Comments: 65-year-old female with a past medical history of end-stage renal disease on di alysis Friday, Friday, Friday, seizure, hypertension, DVT in bilateral arms, diabetes, CHF, hypothyroidism, and paraplegia presents to the hospital from dialysis center for elevated blood pressure and also mental status. Patient apparently did not receive dialysis. Triage only states that EMS reported patient was altered and did not receive dialysis due to hypertension. Patient is drowsy, opens eyes to voice, able to state her first name but unable to provide any of the history of present illness or reliably follow commands. After dialysis provided by EMS patient currently is on vitamin D, his current medications include levothyroxine 25 mcg daily, clonidine 0.1 mg twice daily, gabapentin 300 mg 3 times daily, ergocalciferol/vitamin D 2, and Coreg 1 mg twice daily Senior Sales Operations Manager: Dr. Patricia Figueredo As per patient medical record review patient was here in the ER December 13 for abdominal pain and constipation. Abdominal x-ray showed constipation. Patient refused lab work or other evaluation. She is documented to have decision-making capacity at that time and left AMA. Initial Accu-Chek after my evaluation in the s - Related Data Home Medications Medication Instructions Recorded Confirmed Last Taken Levothyroxine [Synthroid] 25 mcg PO QDAY 06/19/16 12/22/20 08/15/17 carvediloL [Coreg] 5 mg PO BID 09/17/16 12/22/20 08/15/17 Previous Rx's Medication Instructions Recorded Last Taken Type Calcium Carbonate [Tums 500MG CHEW] 1,000 mg PO TID #30 tablet 06/26/16 09/16/16 Rx Gabapentin 600 mg PO TID #90 capsule 05/07/17 08/16/17 Rx HYDROcodone/APAP 5-325 [[place] 1 each PO Q6HR PRN #6 tablet 11/13/20 Unknown Rx 5/325] oxyCODONE /ACETAMINOPHEN [Percocet 1 - 2 tab PO Q6HR PRN #10 tablet 11/15/20 Unknown Rx 5/325] Docusate Sodium [Colace CAP] 100 mg PO BID #60 capsule 12/13/20 Unknown Rx Allergies Allergy/AdvReac Type Severity Reaction Status Date / Time diphenhydramine HCl Allergy Nausea Verified 11/15/20 14:10 [From Benadryl] Penicillins Allergy Unknown Verified 11/15/20 14:10 ED Review of Systems ROS: Stated complaint: AMS Other details as noted in HPI Comment: Unobtainable due to pts medical conditions ED Past Medical Hx - Past Medical History Hx Hypertension: Yes Hx Congestive Heart Failure: Yes Hx Diabetes: Yes Hx Deep Vein Thrombosis: Yes (bilateral arms) Hx Renal Disease: Yes (ESRD) Hx Seizures: Yes Hx Asthma: No Hx COPD: No Hx HIV: No Additional medical history: thyroid dz, dialysis MWF, paralysis lower extremities - Surgical History Past Surgical History?: Yes Additional Surgical History: peritoneal dialysis, parathyroid removed, and right thyroid removed per family - Social History Smoking Status: Never Smoker Substance Use Type: None - Medications Home Medications: Home Medications Medication Instructions Recorded Confirmed Last Taken Type Levothyroxine [Synthroid] 25 mcg PO QDAY 06/19/16 12/22/20 08/15/17 History Calcium Carbonate [Tums 500MG CHEW] 1,000 mg PO TID #30 tablet 06/26/16 12/22/20 09/16/16 Rx carvediloL [Coreg] 5 mg PO BID 09/17/16 12/22/20 08/15/17 History Gabapentin 600 mg PO TID #90 capsule 05/07/17 12/22/20 08/16/17 Rx HYDROcodone/APAP 5-325 [[place] 1 each PO Q6HR PRN #6 tablet 11/13/20 12/22/20 Unknown Rx 5/325] oxyCODONE /ACETAMINOPHEN [Percocet 1 - 2 tab PO Q6HR PRN #10 tablet 11/15/20 12/22/20 Unknown Rx 5/325] Docusate Sodium [Colace CAP] 100 mg PO BID #60 capsule 12/13/20 12/22/20 Unknown Rx ED Physical Exam - General Limitations: No Limitations - Other Other exam information: General: No acute distress Head: Atraumatic Eyes: Pupils equal reactive to light ENT: Moist mucous membranes Neck: Normal appearance, no midline tenderness Chest: Clear to auscultation bilaterally CV: Regular rate and rhythm, right arm AV fistula/graft positive for Abdomen: Soft, normal bowel sounds, nontender, nondistended, no rebound or guarding Back: Normal inspection Extremity: Right arm contracted, Neuro: Lethargic, speech clear, oriented only to self, but not follow commands, right arm contracted, bilateral paraplegia, left upper extremity weak ED Course Vital Signs 12/22/20 12/22/20 12/22/20 15:44 18:13 19:00 Temperature 98.0 F Pulse Rate 59 L 52 L Pulse Rate [ Anterior Bilateral Throughout] Respiratory 18 17 10 L Rate Respiratory Rate [Anterior Bilateral Throughout] Blood Pressure 217/72 206/67 Blood Pressure [right arm] O2 Sat by Pulse 97 100 94 Oximetry 12/22/20 12/22/20 12/22/20 19:16 19:30 20:00 Temperature Pulse Rate 54 L 56 L Pulse Rate [ 90 Anterior Bilateral Throughout] Respiratory 11 L 15 Rate Respiratory 20 Rate [Anterior Bilateral Throughout] Blood Pressure 227/75 199/61 Blood Pressure [right arm] O2 Sat by Pulse 94 99 Oximetry 12/22/20 12/22/20 12/22/20 20:31 21:01 21:21 Temperature Pulse Rate 69 62 Pulse Rate [ Anterior Bilateral Throughout] Respiratory 15 18 Rate Respiratory Rate [Anterior Bilateral Throughout] Blood Pressure 227/75 202/70 Blood Pressure 195/62 [right arm] O2 Sat by Pulse 100 100 Oximetry - Reevaluation(s) Reevaluation #1: 12/22/20 18:59 o2 sat 94-95% on room air. bp 206/67, awaiting requested ekg. Reevaluation #2: 12/22/20 22:25 pt just transported upstairs by nurse Misael, I informed him to communicate to nursing staff to recheck patient sugar stat to make sure that it is stable since last glucose was 67 - Consultations Consultation #1: 12/22/20 19:[address] James final touch up painter. Agrees admission for dialysis is necessary. Plan for dialysis in the morning. Goal systolic pressure less than 180. - EJ/Peripheral Line Neck L Time Out Performed: Yes Indications: nurses unable to establis Skin Cleansed in Sterile Fashion: Yes Size: 20 Dressing Placed: Tegaderm Patient Tolerated Procedure: well - Lab Data Result diagrams: 12/22/20 18:09 12/22/20 18:09 Lab Results 12/22/20 12/22/20 12/22/20 Range/Units 16:45 18:09 18:09 WBC 7.0 (4.5-11.0) K/mm3 RBC 3.33 L (3.65-5.03) M/mm3 Hgb 11.3 (10.1-14.3) gm/dl Hct 34.6 (30.3-42.9) % MCV 104 H (79-97) fl MCH 34 H (28-32) pg MCHC 33 (30-34) % RDW 15.6 H (13.2-15.2) % Plt Count 182 (140-440) K/mm3 Lymph % (Auto) 6.7 L (13.4-35.0) % [place] % (Auto) 8.6 H (0.0-7.3) % Eos % (Auto) 0.5 (0.0-4.3) % Baso % (Auto) 0.3 (0.0-1.8) % Lymph # (Auto) 0.5 L (1.2-5.4) K/mm3 [place] # (Auto) 0.6 (0.0-0.8) K/mm3 Eos # (Auto) 0.0 (0.0-0.4) K/mm3 Baso # (Auto) 0.0 (0.0-0.1) K/mm3 Seg Neutrophils % 83.9 H (40.0-70.0) % Seg Neutrophils # 5.9 (1.8-7.7) K/mm3 PT 15.6 H (12.2-14.9) Sec. INR 1.24 H (0.87-1.13) APTT 34.9 (24.2-36.6) Sec. Sodium (137-145) mmol/L Potassium (3.6-5.0) mmol/L Chloride (98-107) mmol/L Carbon Dioxide (22-30) mmol/L Anion Gap mmol/L BUN (7-17) mg/dL Creatinine (0.6-1.2) mg/dL Estimated GFR ml/min BUN/Creatinine Ratio % Glucose (65-100) mg/dL POC Glucose 74 (70-105) mg/dL Calcium (8.4-10.2) mg/dL Total Bilirubin (0.1-1.2) mg/dL AST (5-40) units/L ALT (7-56) units/L Alkaline Phosphatase (35-129) units/L Ammonia (25-60) umol/L Total Creatine Kinase (30-135) units/L CK-MB (CK-2) (0.0-4.0) ng/mL CK-MB (CK-2) Rel Index (0-4) Troponin T (0.00-0.029) ng/mL Total Protein (6.3-8.2) g/dL Albumin (3.9-5) g/dL Albumin/Globulin Ratio % Triglycerides (2-149) mg/dL Cholesterol (50-199) mg/dL LDL Cholesterol Direct (50-130) mg/dL HDL Cholesterol (40-59) mg/dL Cholesterol/HDL Ratio % TSH (0.270-4.200) mlU/mL Free T4 (0.76-1.46) ng/dL Salicylates (2.8-20.0) mg/dL Acetaminophen (10.0-30.0) ug/mL Plasma/Serum Alcohol (0-0.07) % 12/22/20 12/22/20 12/22/20 Range/Units 18:09 18:09 18:09 WBC (4.5-11.0) K/mm3 RBC (3.65-5.03) M/mm3 Hgb (10.1-14.3) gm/dl Hct (30.3-42.9) % MCV (79-97) fl MCH (28-32) pg MCHC (30-34) % RDW (13.2-15.2) % Plt Count (140-440) K/mm3 Lymph % (Auto) (13.4-35.0) % [place] % (Auto) (0.0-7.3) % Eos % (Auto) (0.0-4.3) % Baso % (Auto) (0.0-1.8) % Lymph # (Auto) (1.2-5.4) K/mm3 [place] # (Auto) (0.0-0.8) K/mm3 Eos # (Auto) (0.0-0.4) K/mm3 Baso # (Auto) (0.0-0.1) K/mm3 Seg Neutrophils % (40.0-70.0) % Seg Neutrophils # (1.8-7.7) K/mm3 PT (12.2-14.9) Sec. INR (0.87-1.13) APTT (24.2-36.6) Sec. Sodium 139 (137-145) mmol/L Potassium 5.5 H (3.6-5.0) mmol/L Chloride 97.3 L (98-107) mmol/L Carbon Dioxide 21 L (22-30) mmol/L Anion Gap 26 mmol/L BUN 72 H (7-17) mg/dL Creatinine 7.8 H (0.6-1.2) mg/dL Estimated GFR 6 ml/min BUN/Creatinine Ratio 9 % Glucose 68 (65-100) mg/dL POC Glucose (70-105) mg/dL Calcium 8.5 (8.4-10.2) mg/dL Total Bilirubin 0.40 (0.1-1.2) mg/dL AST 12 (5-40) units/L ALT < 5 L (7-56) units/L Alkaline Phosphatase 89 (35-129) units/L Ammonia (25-60) umol/L Total Creatine Kinase (30-135) units/L CK-MB (CK-2) (0.0-4.0) ng/mL CK-MB (CK-2) Rel Index (0-4) Troponin T 0.636 H* (0.00-0.029) ng/mL Total Protein 6.9 (6.3-8.2) g/dL Albumin 3.4 L (3.9-5) g/dL Albumin/Globulin Ratio 1.0 % Triglycerides 120 (2-149) mg/dL Cholesterol 212 H (50-199) mg/dL LDL Cholesterol Direct 128 (50-130) mg/dL HDL Cholesterol 57 (40-59) mg/dL Cholesterol/HDL Ratio 3.71 % TSH (0.270-4.200) mlU/mL Free T4 (0.76-1.46) ng/dL Salicylates < 0.3 L (2.8-20.0) mg/dL Acetaminophen 5.0 L (10.0-30.0) ug/mL Plasma/Serum Alcohol (0-0.07) % 0412/22/20 12/22/20 Range/Units 18:09 18:09 18:09 WBC (4.5-11.0) K/mm3 RBC (3.65-5.03) M/mm3 Hgb (10.1-14.3) gm/dl Hct (30.3-42.9) % MCV (79-97) fl MCH (28-32) pg MCHC (30-34) % RDW (13.2-15.2) % Plt Count (140-440) K/mm3 Lymph % (Auto) (13.4-35.0) % [place] % (Auto) (0.0-7.3) % Eos % (Auto) (0.0-4.3) % Baso % (Auto) (0.0-1.8) % Lymph # (Auto) (1.2-5.4) K/mm3 [place] # (Auto) (0.0-0.8) K/mm3 Eos # (Auto) (0.0-0.4) K/mm3 Baso # (Auto) (0.0-0.1) K/mm3 Seg Neutrophils % (40.0-70.0) % Seg Neutrophils # (1.8-7.7) K/mm3 PT (12.2-14.9) Sec. INR (0.87-1.13) APTT (24.2-36.6) Sec. Sodium (137-145) mmol/L Potassium (3.6-5.0) mmol/L Chloride (98-107) mmol/L Carbon Dioxide (22-30) mmol/L Anion Gap mmol/L BUN (7-17) mg/dL Creatinine (0.6-1.2) mg/dL Estimated GFR ml/min BUN/Creatinine Ratio % Glucose (65-100) mg/dL POC Glucose (70-105) mg/dL Calcium (8.4-10.2) mg/dL Total Bilirubin (0.1-1.2) mg/dL AST (5-40) units/L ALT (7-56) units/L Alkaline Phosphatase (35-129) units/L Ammonia 15.0 L (25-60) umol/L Total Creatine Kinase 97 (30-135) units/L CK-MB (CK-2) 6.0 H (0.0-4.0) ng/mL CK-MB (CK-2) Rel Index 6.1 H (0-4) Troponin T (0.00-0.029) ng/mL Total Protein (6.3-8.2) g/dL Albumin (3.9-5) g/dL Albumin/Globulin Ratio % Triglycerides (2-149) mg/dL Cholesterol (50-199) mg/dL LDL Cholesterol Direct (50-130) mg/dL HDL Cholesterol (40-59) mg/dL Cholesterol/HDL Ratio % TSH (0.270-4.200) mlU/mL Free T4 (0.76-1.46) ng/dL Salicylates (2.8-20.0) mg/dL Acetaminophen (10.0-30.0) ug/mL Plasma/Serum Alcohol < 0.01 (0-0.07) % 12/22/20 12/22/20 Range/Units 18:09 18:16 WBC (4.5-11.0) K/mm3 RBC (3.65-5.03) M/mm3 Hgb (10.1-14.3) gm/dl Hct (30.3-42.9) % MCV (79-97) fl MCH (28-32) pg MCHC (30-34) % RDW (13.2-15.2) % Plt Count (140-440) K/mm3 Lymph % (Auto) (13.4-35.0) % [place] % (Auto) (0.0-7.3) % Eos % (Auto) (0.0-4.3) % Baso % (Auto) (0.0-1.8) % Lymph # (Auto) (1.2-5.4) K/mm3 [place] # (Auto) (0.0-0.8) K/mm3 Eos # (Auto) (0.0-0.4) K/mm3 Baso # (Auto) (0.0-0.1) K/mm3 Seg Neutrophils % (40.0-70.0) % Seg Neutrophils # (1.8-7.7) K/mm3 PT (12.2-14.9) Sec. INR (0.87-1.13) APTT (24.2-36.6) Sec. Sodium (137-145) mmol/L Potassium (3.6-5.0) mmol/L Chloride (98-107) mmol/L Carbon Dioxide (22-30) mmol/L Anion Gap mmol/L BUN (7-17) mg/dL Creatinine (0.6-1.2) mg/dL Estimated GFR ml/min BUN/Creatinine Ratio % Glucose (65-100) mg/dL POC Glucose 67 L (70-105) mg/dL Calcium (8.4-10.2) mg/dL Total Bilirubin (0.1-1.2) mg/dL AST (5-40) units/L ALT (7-56) units/L Alkaline Phosphatase (35-129) units/L Ammonia (25-60) umol/L Total Creatine Kinase (30-135) units/L CK-MB (CK-2) (0.0-4.0) ng/mL CK-MB (CK-2) Rel Index (0-4) Troponin T (0.00-0.029) ng/mL Total Protein (6.3-8.2) g/dL Albumin (3.9-5) g/dL Albumin/Globulin Ratio % Triglycerides (2-149) mg/dL Cholesterol (50-199) mg/dL LDL Cholesterol Direct (50-130) mg/dL HDL Cholesterol (40-59) mg/dL Cholesterol/HDL Ratio % TSH 6.190 H (0.270-4.200) mlU/mL Free T4 1.05 (0.76-1.46) ng/dL Salicylates (2.8-20.0) mg/dL Acetaminophen (10.0-30.0) ug/mL Plasma/Serum Alcohol (0-0.07) % - EKG Data -: EKG Interpreted by Me (MILD PEAK T WAVES) EKG shows normal: sinus rhythm Rate: bradycardia (58) When compared to previous EKG there are: no significant change (Except PEAK T waves TODAY) - Radiology Data Radiology results: report reviewed CT head/brain wo con INDICATION: altered mental status. TECHNIQUE: Routine CT head without contrast. All CT scans at this location are performed using CT dose reduction for ALARA by means of automated exposure control. COMPARISON: None. FINDINGS: BRAIN / INTRACRANIAL CONTENTS: No acute hemorrhage, mass effect, midline shift, or hydrocephalus. No appreciable acute large territorial or lacunar infarct. No chronic infarct. Age-commensurate ventricular and cisternal/sulcal prominence. ORBITS: No significant abnormality of visualized orbits. SINUSES / MASTOIDS: No significant abnormality of visualized sinuses and ma stoid air cells. ADDITIONAL FINDINGS: None. IMPRESSION: 1. No acute intracranial abnormality. CHEST 1 VIEW 12/22/2020 5:41 PM INDICATION / CLINICAL INFORMATION: ams, missed dialysis. COMPARISON: 09/16/2016. FINDINGS: SUPPORT DEVICES: None. HEART / MEDIASTINUM: Moderate cardiomegaly. LUNGS / PLEURA: Pleural fluid/volume loss right base is moderate. Mild edema. ADDITIONAL FINDINGS: No significant additional findings. IMPRESSION: 1. Mild edema. 2. Cardiomegaly. 3. Moderate pleural fluid/volume loss right base. - Medical Decision Making 65-year-old female sent to the hospital from her dialysis center with decreased mental status and elevated blood pressure. Dialysis was not performed prior to arrival. Delay in obtaining blood work due to initial patient refusal and difficult IV access. ED work-up reveals elevated blood pressure, hyperkalemia, uremia, acute encephalopathy, and right pleural effusion. No signs of hypoxia at this time. CT head unremarkable. Hyperkalemia treated with medications and IV hydralazine provided for hypertension. Mild troponin elevation noted in his chronic compared to previous likely result of chronic renal disease however, repeat troponin pending. Case discussed with final touch up painter Dr. James with plan to perform dialysis in the morning. Request goal systolic blood pressure less than 180. Patient will be admitted to the hospital for dialysis and further t reatment. Critical Care Time: No Critical care attestation.: If time is entered above; I have spent that time in minutes in the direct care of this critically ill patient, excluding procedure time. ED Disposition Clinical Impression: Acute encephalopathy, ESRD needing dialysis, Hyperkalemia, Uremia, Diabetes, Uncontrolled hypertension, Pleural effusion, right Disposition: [id number] OP ADMIT IP TO THIS HOSP Is pt being admited?: Yes Condition: Stable Time of Disposition: 19:20 (Dr Escamilla/hospitalist)
--- NOTE | 2020-12-22 17:37 | Cat Scan Report ---
CT head/brain wo con INDICATION: altered mental status. TECHNIQUE: Routine CT head without contrast. All CT scans at this location are performed using CT dos e reduction for ALARA by means of automated exposure control. COMPARISON: None. FINDINGS: BRAIN / INTRACRANIAL CONTENTS: No acute hemorrhage, mass effect, midline shift, or hydrocephalus. No appreciable acute large territorial or lacunar infarct. No chronic infarct. Age-commensurate ventricu lar and cisternal/sulcal prominence. ORBITS: No significant abnormality of visualized orbits. SINUSES / MASTOIDS: No significant abnormality of visualized sinuses and mastoid air cells. ADDITIONAL FINDINGS: None. IMPRESSION: 1. No acute intracranial abnormality. Signer Name: Misael Thompson MD Signed: 12/22/2020 5:32 PM Workstation Name: [id number]
[2020-12-22 18:19] LABS: Basophils % (Auto) 0.3 % (0.0-1.8); Eosinophils % (Auto) 0.5 % (0.0-4.3); Hematocrit 34.6 % (30.3-42.9); Hemoglobin 11.3 gm/dl (10.1-14.3); Lymphocytes # (Auto) 0.5 K/mm3 (1.2-5.4); Lymphocytes % (Auto) 6.7 % (13.4-35.0); Mean Corpuscular HGB Conc 33 % (30-34); Mean Corpuscular Volume 104 fl (79-97); Monocytes # (Auto) 0.6 K/mm3 (0.0-0.8); Monocytes % (Auto) 8.6 % (0.0-7.3); Platelet Count 182 K/mm3 (140-440); Red Blood Count 3.33 M/mm3 (3.65-5.03); Red Cell Distribution Width 15.6 % (13.2-15.2)
[2020-12-22 18:33] LABS: INR 1.24 (0.87-1.13)
[2020-12-22 18:34] LABS: Partial Thromboplastin Time 34.9 Sec. (24.2-36.6)
[2020-12-22 18:45] LABS: Albumin 3.4 g/dL (3.9-5); Blood Urea Nitrogen 72 mg/dL (7-17); Calcium 8.5 mg/dL (8.4-10.2); Hemolysis Index 8
--- NOTE | 2020-12-22 18:49 | XRay Report ---
CHEST 1 VIEW 12/22/2020 5:41 PM INDICATION / CLINICAL INFORMATION: ams, missed dialysis. COMPARISON: 09/16/2016. FINDINGS: SUPPORT DEVICES: None. HEART / MEDIASTINUM: Moderate cardiomegaly. LUNGS / PLEURA: Pleural fluid/volume loss right base is moderate. Mild edema. ADDITIONAL FINDINGS: No significant additional findings. IMPRESSION: 1. Mild edema. 2. Cardiomegaly. 3. Moderate pleural fluid/volume loss right base. Signer Name: Agustin Cuello MD Signed: 12/22/2020 6:44 PM Workstation Name: [id number]
[2020-12-22] MEDS ORDERED: SODIUM BICARB 8.4% 50 MEQ/50 ML SYRINGE IV ONE (18:52)
[2020-12-22 18:53] LABS: Alanine Aminotransferase < 5 units/L (7-56); BUN/Creatinine Ratio 9
[2020-12-22] MEDS ORDERED: ALBUTEROL 2.5 MG/3 ML NEBU IH ONE (18:53)
[2020-12-22] MEDS ORDERED: DEXTROSE 50% IN WATER (25GM) 50 ML VIAL IV ONE (18:54)
[2020-12-22] MEDS ORDERED: ASPIRIN 325 MG TAB PO ONE (18:54)
[2020-12-22 18:55] LABS: Free T4 (Free Thyroxine) 1.05 ng/dL (0.76-1.46)
[2020-12-22] MEDS ORDERED: INSULIN REGULAR, HUMAN 100 UNITS/1 ML IV ONE (18:55)
[2020-12-22] MEDS ORDERED: DEXTROSE 50% IN WATER (25GM) 50 ML SYRINGE IV ONE (19:00)
[2020-12-22] MEDS ORDERED: hydrALAZINE 20 MG/1 ML INJ IV ONE (19:08)
[2020-12-22] MEDS ORDERED: ALBUTEROL 2.5 MG/3 ML NEBU IH PRN (19:20)
[2020-12-22] MEDS ORDERED: ONDANSETRON 4 MG/2 ML INJ IV PRN (19:20)
[2020-12-22] MEDS ORDERED: ACETAMINOPHEN 325 MG TAB PO PRN (19:20)
--- NOTE | 2020-12-22 19:20 | History and Physical Report ---
History of Present Illness Chief complaint: My blood pressure was too high to get dialysis History of present illness: 65 YO Female with ESRD on HD(M,W,F), HTN, BUE DVT not on therapeutic anticoagulation, DM, Diastolic CHF, Hypothyroidism, Seizure Disorder, Paraplegia presents to ED for evaluation. Pt reports " my blood pressure was too high". Patient states that she was in her usual state of health and presented to her dialysis center for her routine scheduled dialysis. Patient was found to have a systolic blood pressure above 200 and was instructed to seek further care. Patient transported to [facility] via private vehicle for further care and evaluation of the aforementioned symptoms. The patient was seen and evaluated in the emergency department. All lab and imaging studies reviewed. Patient was found to have a blood pressure of 217/72. Patient treated with antihypertensive therapy and placed in observation status and admitted to telemetry. Patient denies fever, chills, chest pain, palpitation, productive cough, skin rash, recent ill contact, headache, seizure, loss of consciousness, recent ill co ntacts, or known exposure to COVID-19. Prior admission on 08/17/2017 reviewed. All medication listed at time of admission has b Past History Past Medical History: diabetes, ESRD, heart failure, hypertension, other (See HPI) Past Surgical History: Other (parathyroidectomy, ) Social history: single. denies: smoking, alcohol abuse, prescription drug abuse Family history: diabetes, hypertension Medications and Allergies Allergies Allergy/AdvReac Type Severity Reaction Status Date / Time diphenhydramine HCl Allergy Nausea Verified 11/15/20 14:10 [From Benadryl] Penicillins Allergy Unknown Verified 11/15/20 14:10 Home Medications Medication Instructions Recorded Confirmed Last Taken Type Levothyroxine [Synthroid] 25 mcg PO QDAY 06/19/16 08/17/17 08/15/17 History Calcium Carbonate [Tums 500MG CHEW] 1,000 mg PO TID #30 tablet 06/26/16 08/17/17 09/16/16 Rx carvediloL [Coreg] 5 mg PO BID 09/17/16 08/17/17 08/15/17 History Gabapentin 600 mg PO TID #90 capsule 05/07/17 08/17/17 08/16/17 Rx levoFLOXacin [Levaquin TAB] 500 mg PO Q48H #4 tablet 08/19/17 Unknown Rx metroNIDAZOLE [Flagyl] 500 mg PO Q8HR #20 tablet 08/19/17 Unknown Rx HYDROcodone/APAP 5-325 [[place] 1 each PO Q6HR PRN #6 tablet 11/13/20 Unknown Rx 5/325] oxyCODONE /ACETAMINOPHEN [Percocet 1 - 2 tab PO Q6HR PRN #10 tablet 11/15/20 Unknown Rx 5/325] Docusate Sodium [Colace CAP] 100 mg PO BID #60 capsule 12/13/20 Unknown Rx Active Meds: Active Medications Calcium Gluconate 1,000 mg/ (Sodium Chloride) 110 mls @ 660 mls/hr IV ONCE ONE Stop: 12/22/20 19:39 Review of Systems Constitutional: no weight loss, no weight gain, no fever, no chills, no sweats, no night sweats Ears, nose, mouth and throat: no ear pain, no decreased hearing, no nose pain, no nasal congestion, no nasal discharge Breasts: no change in shape, no swelling, no mass Cardiovascular: no chest pain, no orthopnea, no rapid/irregular heart beat, no lightheadedness Respiratory: no excessive sputum, no hemoptysis Gastrointestinal: no abdominal pain, no nausea, no vomiting, no diarrhea Genitourinary Female: no pelvic pain, no flank pain, no dysuria, no urinary frequency, no urgency Rectal: no pain, no incontinence, no bleeding Musculoskeletal: no neck stiffness, no neck pain, no low back pain, no shooting leg pain Integumentary: no rash, no pruritis, no redness, no sores, no jaundice Neurological: no head injury, no transient paralysis, no paralysis, no seizures, no syncope, no tremors Psychiatric: no anxiety, no memory loss, no insomnia, no hypersomnia, no change in appetite, no suicidal ideation Endocrine: no cold intolerance, no polyphagia, no polydipsia, no excessive sweating, no flushing Hematologic/Lymphatic: no easy bruising, no easy bleeding, no lymphadenopathy, no lymphedema Allergic/Immunologic: no urticaria, no allergic rhinitis, no wheezing, no persistent infections Exam - Constitutional Vitals: Temp Pulse Resp BP Pulse Ox 98.0 F 90 20 217/72 100 12/22/20 15:44 12/22/20 19:16 12/22/20 19:16 12/22/20 15:44 12/22/20 18:13 General appearance: Present: mild distress - EENT Eyes: Present: PERRL ENT: hearing intact, clear oral mucosa - Neck Neck: Present: supple, normal ROM - Respiratory Respiratory effort: normal Respiratory: bilateral: CTA - Cardiovascular Heart Sounds: Present: S1 & S2. Absent: rub, click - Extremities Extremities: pulses symmetrical, No edema Peripheral Pulses: within normal limits - Abdominal General gastrointestinal: Present: soft, non-tender, non-distended, normal bowel sounds Female genitourinary: Present: normal - Integumentary Integumentary: Present: clear, warm, dry - Musculoskeletal Musculoskeletal: gait normal, strength equal bilaterally - Psychiatric Psychiatric: appropriate mood/affect, intact judgment & insight - Neurologic Neurologic: CNII-XII intact, moves all extremities HEART Score - HEART Score Troponin: Troponin T 0.636 ng/mL (0.00-0.029) H* 12/22/20 18:09 Results - Labs CBC & Chem 7: 12/22/20 18:09 12/22/20 18:09 Labs: Abnormal lab results 12/22/20 12/22/20 12/22/20 Range/Units 18:09 18:09 18:09 RBC 3.33 L (3.65-5.03) M/mm3 MCV 104 H (79-97) fl MCH 34 H (28-32) pg RDW 15.6 H (13.2-15.2) % Lymph % (Auto) 6.7 L (13.4-35.0) % [place] % (Auto) 8.6 H (0.0-7.3) % Lymph # (Auto) 0.5 L (1.2-5.4) K/mm3 Seg Neutrophils % 83.9 H (40.0-70.0) % PT 15.6 H (12.2-14.9) Sec. INR 1.24 H (0.87-1.13) Potassium 5.5 H (3.6-5.0) mmol/L Chloride 97.3 L (98-107) mmol/L Carbon Dioxide 21 L (22-30) mmol/L BUN 72 H (7-17) mg/dL Creatinine 7.8 H (0.6-1.2) mg/dL ALT < 5 L (7-56) units/L Ammonia (25-60) umol/L CK-MB (CK-2) (0.0-4.0) ng/mL CK-MB (CK-2) Rel Index (0-4) Troponin T 0.636 H* (0.00-0.029) ng/mL Albumin 3.4 L (3.9-5) g/dL TSH (0.270-4.200) mlU/mL Salicylates (2.8-20.0) mg/dL Acetaminophen (10.0-30.0) ug/mL 12/22/20 12/22/20 12/22/20 Range/Units 18:09 18:09 18:09 RBC (3.65-5.03) M/mm3 MCV (79-97) fl MCH (28-32) pg RDW (13.2-15.2) % Lymph % (Auto) (13.4-35.0) % [place] % (Auto) (0.0-7.3) % Lymph # (Auto) (1.2-5.4) K/mm3 Seg Neutrophils % (40.0-70.0) % PT (12.2-14.9) Sec. INR (0.87-1.13) Potassium (3.6-5.0) mmol/L Chloride (98-107) mmol/L Carbon Dioxide (22-30) mmol/L BUN (7-17) mg/dL Creatinine (0.6-1.2) mg/dL ALT (7-56) units/L Ammonia 15.0 L (25-60) umol/L CK-MB (CK-2) (0.0-4.0) ng/mL CK-MB (CK-2) Rel Index (0-4) Troponin T (0.00-0.029) ng/mL Albumin (3.9-5) g/dL TSH (0.270-4.200) mlU/mL Salicylates < 0.3 L (2.8-20.0) mg/dL Acetaminophen 5.0 L (10.0-30.0) ug/mL 12/22/20 12/22/20 Range/Units 18:09 18:09 RBC (3.65-5.03) M/mm3 MCV (79-97) fl MCH (28-32) pg RDW (13.2-15.2) % Lymph % (Auto) (13.4-35.0) % [place] % (Auto) (0.0-7.3) % Lymph # (Auto) (1.2-5.4) K/mm3 Seg Neutrophils % (40.0-70.0) % PT (12.2-14.9) Sec. INR (0.87-1.13) Potassium (3.6-5.0) mmol/L Chloride (98-107) mmol/L Carbon Dioxide (22-30) mmol/L BUN (7-17) mg/dL Creatinine (0.6-1.2) mg/dL ALT (7-56) units/L Ammonia (25-60) umol/L CK-MB (CK-2) 6.0 H (0.0-4.0) ng/mL CK-MB (CK-2) Rel Index 6.1 H (0-4) Troponin T (0.00-0.029) ng/mL Albumin (3.9-5) g/dL TSH 6.190 H (0.270-4.200) mlU/mL Salicylates (2.8-20.0) mg/dL Acetaminophen (10.0-30.0) ug/mL Assessment and Plan - Patient Problems (1) End stage renal disease Current Visit: Yes Status: Acute Plan to address problem: Nephrology team consulted in ED, dialysis as per renal team, strict I's/O, monitor urine output every shift, avoid nephrotoxic agents. (2) Accelerated hypertension Current Visit: Yes Status: Acute Plan to address problem: Monitor blood pressure every shift, continue prehospital antihypertensive therapy, IV hydralazine every 6 hours as needed for systolic blood pressure greater than or equal to 155 mmHg (3) DVT prophylaxis Current Visit: Yes Status: Acute Plan to address problem: SCD to bilateral lower extremities while in bed, patient is ambulatory (4) Advance care planning Current Visit: Yes Status: Acute Plan to address problem: Disease education conducted, care plan discussed, prognosis discussed, diagnosis discussed, patient is full code, patient knowledges understanding and agree with care plan, +30 minutes.
[2020-12-22] MEDS ORDERED: CALCIUM GLUCONATE 1,000 MG in SODIUM CHLORIDE 0.9% 100 ML IV ONE (19:30)
[2020-12-22] MEDS ORDERED: SODIUM CHLORIDE 0.9% 100 ML IV PRN (19:35)
[2020-12-22 21:08] LABS: Chol/HDL Ratio 3.71 %; HDL Cholesterol 57 mg/dL (40-59); LDL Cholesterol,Direct 128 mg/dL (50-130)
[2020-12-22 21:30] LABS: Hepatitis B Surface Antigen Non-Reactive (Negative); Hepatitis C Virus Antibody Non-Reactive (NonReactive)
[2020-12-22] MEDS: GABAPENTIN 300 MG CAP PO SCH (22:43)
[2020-12-22] MEDS: HYDROcodone/ACETAMINOPHEN 5-325 MG TAB PO PRN (22:54)
[2020-12-22] MEDS: carvediloL 6.25 MG TAB PO SCH (22:54)
[2020-12-22] MEDS: DOCUSATE SODIUM 100 MG CAP PO SCH (22:54)
[2020-12-22] MEDS: CALCIUM CARBONATE 500 MG TAB CHEW PO SCH (22:55)
[2020-12-23] MEDS: hydrALAZINE 20 MG/1 ML INJ IV PRN ×2 (06:12→18:40)
[2020-12-23] MEDS: HYDROcodone/ACETAMINOPHEN 5-325 MG TAB PO PRN ×2 (06:13→18:40)
[2020-12-23] MEDS: LEVOTHYROXINE 25 MCG TAB PO SCH (06:13)
[2020-12-23 06:49] LABS: Calcium 8.3 mg/dL (8.4-10.2)
--- NOTE | 2020-12-23 09:07 | Progress Note ---
Assessment and Plan Assessment and plan: ESRD Accelerated hypertension Diabetes mellitus type 2 Diastolic heart failure. Echocardiogram 2016 revealed mild concentric left ventricular hypertrophy and a EF of 65 to 70%. Left ventricular systolic function normal. Bilateral upper extremity DVT not on therapeutic anticoagulation Hypothyroidism Seizure disorder Paraplegia DVT prophylaxis History Interval history: No new issues overnight. Hospitalist Physical - Constitutional Vitals: Temp Pulse Resp BP Pulse Ox 97.9 F 61 18 172/60 100 12/23/20 08:30 12/23/20 08:30 12/23/20 08:30 12/23/20 08:30 12/23/20 08:30 General appearance: Present: no acute distress - EENT Eyes: Present: PERRL, EOM intact ENT: hearing intact, clear oral mucosa, dentition normal - Neck Neck: Present: supple, normal ROM - Respiratory Respiratory effort: normal Respiratory: bilateral: CTA - Cardiovascular Rhythm: regular Heart Sounds: Present: S1 & S2. Absent: gallop, rub - Extremities Extremities: no ischemia, No edema, Full ROM - Abdominal General gastrointestinal: soft, non-tender, non-distended, normal bowel sounds - Integumentary Integumentary: Present: clear, warm, dry - Neurologic Neurologic: CNII-XII intact, moves all extremities HEART Score - HEART Score Troponin: Troponin T 0.625 ng/mL (0.00-0.029) H* 12/22/20 22:44 Results - Labs CBC & Chem 7: 12/22/20 18:09 12/23/20 05:44 Labs: Laboratory Last Values WBC 7.0 K/mm3 (4.5-11.0) 12/22/20 18:09 RBC 3.33 M/mm3 (3.65-5.03) L 12/22/20 18:09 Hgb 11.3 gm/dl (10.1-14.3) 12/22/20 18:09 Hct 34.6 % (30.3-42.9) 12/22/20 18:09 MCV 104 fl (79-97) H 12/22/20 18:09 MCH 34 pg (28-32) H 12/22/20 18:09 MCHC 33 % (30-34) 12/22/20 18:09 RDW 15.6 % (13.2-15.2) H 12/22/20 18:09 Plt Count 182 K/mm3 (140-440) 12/22/20 18:09 Lymph % (Auto) 6.7 % (13.4-35.0) L 12/22/20 18:09 [place] % (Auto) 8.6 % (0.0-7.3) H 12/22/20 18:09 Eos % (Auto) 0.5 % (0.0-4.3) 12/22/20 18:09 Baso % (Auto) 0.3 % (0.0-1.8) 12/22/20 18:09 Lymph # (Auto) 0.5 K/mm3 (1.2-5.4) L 12/22/20 18:09 [place] # (Auto) 0.6 K/mm3 (0.0-0.8) 12/22/20 18:09 Eos # (Auto) 0.0 K/mm3 (0.0-0.4) 12/22/20 18:09 Baso # (Auto) 0.0 K/mm3 (0.0-0.1) 12/22/20 18:09 Seg Neutrophils % 83.9 % (40.0-70.0) H 12/22/20 18:09 Seg Neutrophils # 5.9 K/mm3 (1.8-7.7) 12/22/20 18:09 PT 15.6 Sec. (12.2-14.9) H 12/22/20 18:09 INR 1.24 (0.87-1.13) H 12/22/20 18:09 APTT 34.9 Sec. (24.2-36.6) 12/22/20 18:09 Sodium 142 mmol/L (137-145) 12/23/20 05:44 Potassium 5.4 mmol/L (3.6-5.0) H 12/23/20 05:44 Chloride 100.4 mmol/L (98-107) 12/23/20 05:44 Carbon Dioxide 21 mmol/L (22-30) L 12/23/20 05:44 Anion Gap 26 mmol/L 12/23/20 05:44 BUN 75 mg/dL (7-17) H 12/23/20 05:44 Creatinine 8.1 mg/dL (0.6-1.2) H 12/23/20 05:44 Estimated GFR 6 ml/min 12/23/20 05:44 BUN/Creatinine Ratio 9 % 12/23/20 05:44 Glucose 91 mg/dL (65-100) 12/23/20 05:44 POC Glucose 83 mg/dL (70-105) 12/22/20 22:33 Calcium 8.3 mg/dL (8.4-10.2) L 12/23/20 05:44 Total Bilirubin 0.40 mg/dL (0.1-1.2) 12/22/20 18:09 AST 12 units/L (5-40) 12/22/20 18:09 ALT < 5 units/L (7-56) L 12/22/20 18:09 Alkaline Phosphatase 89 units/L (35-129) 12/22/20 18:09 Ammonia 15.0 umol/L (25-60) L 12/22/20 18:09 Total Creatine Kinase 97 units/L (30-135) 12/22/20 18:09 CK-MB (CK-2) 6.0 ng/mL (0.0-4.0) H 12/22/20 18:09 CK-MB (CK-2) Rel Index 6.1 (0-4) H 12/22/20 18:09 Troponin T 0.625 ng/mL (0.00-0.029) H* 12/22/20 22:44 Total Protein 6.9 g/dL (6.3-8.2) 12/22/20 18:09 Albumin 3.4 g/dL (3.9-5) L 12/22/20 18:09 Albumin/Globulin Ratio 1.0 % 12/22/20 18:09 Triglycerides 120 mg/dL (2-149) 12/22/20 18:09 Cholesterol 212 mg/dL (50-199) H 12/22/20 18:09 LDL Cholesterol Direct 128 mg/dL (50-130) 12/22/20 18:09 HDL Cholesterol 57 mg/dL (40-59) 12/22/20 18:09 Cholesterol/HDL Ratio 3.71 % 12/22/20 18:09 TSH 6.190 mlU/mL (0.270-4.200) H 12/22/20 18:09 Free T4 1.05 ng/dL (0.76-1.46) 12/22/20 18:09 Salicylates < 0.3 mg/dL (2.8-20.0) L 12/22/20 18:09 Acetaminophen 5.0 ug/mL (10.0-30.0) L 12/22/20 18:09 Plasma/Serum Alcohol < 0.01 % (0-0.07) 12/22/20 18:09 Hepatitis A IgM Ab Non-reactive (NonReactive) 12/22/20 Unknown Hep Bs Antigen Non-reactive (Negative) 12/22/20 Unknown Hep B Core IgM Ab Non-reactive (NonReactive) 12/22/20 Unknown Hepatitis C Antibody Non-reactive (NonReactive) 12/22/20 Unknown Active Medications - Current Medications Current Medications: Generic Name Dose Route Start Last Admin Trade Name Freq PRN Reason Stop Dose Admin Acetaminophen 650 mg 12/22/20 19:20 Acetaminophen 325 Mg Tab PO Q4H PRN Pain MILD(1-3)/Fever >100.5/FERNANDEZ Hydrocodone Bitart/Acetaminophen 1 each 12/22/20 19:22 12/23/20 06:13 Hydrocodone/Acetaminophen 5-325 Mg Tab PO 1 each Q6HR PRN Administration PAIN Albuterol 2.5 mg 12/22/20 19:20 Albuterol 2.5 Mg/3 Ml Nebu IH Q4HRT PRN Shortness Of Breath Calcium Carbonate/Glycine 1,000 mg 12/22/20 20:00 12/22/20 22:55 Calcium Carbonate 500 Mg Tab Chew PO 1,000 mg TID NICOLE Administration Carvedilol 6.25 mg 12/22/20 22:00 12/22/20 22:54 Carvedilol 6.25 Mg Tab PO 6.25 mg BID NICOLE Administration Docusate Sodium 100 mg 12/22/20 22:00 12/22/20 22:54 Docusate Sodium 100 Mg Cap PO 100 mg BID NICOLE Administration Gabapentin 600 mg 12/22/20 20:00 12/22/20 22:43 Gabapentin 300 Mg Cap PO 600 mg TID NICOLE Administration Hydralazine HCl 10 mg 12/22/20 19:24 12/23/20 06:12 Hydralazine 20 Mg/1 Ml Inj IV 10 mg Q6HR PRN Administration Hypertension Sodium Chloride 100 mls @ 999 mls/hr 12/22/20 19:35 Nacl 0.9% IV DOMINICK PRN Hypotension Levothyroxine Sodium 25 mcg 12/23/20 06:00 12/23/20 06:13 Levothyroxine 25 Mcg Tab PO 25 mcg DAILY@0600 NICOLE Administration Ondansetron HCl 4 mg 12/22/20 19:20 Ondansetron 4 Mg/2 Ml Inj IV Q8H PRN Nausea And Vomiting Sodium Chloride 10 ml 12/22/20 22:00 12/22/20 22:55 Sodium Chloride 0.9% 10 Ml Flush Syringe IV 10 ml BID NICOLE Administration Sodium Chloride 10 ml 12/22/20 19:20 Sodium Chloride 0.9% 10 Ml Flush Syringe IV PRN PRN LINE FLUSH
[2020-12-23] MEDS: carvediloL 6.25 MG TAB PO SCH ×2 (10:02→22:47)
[2020-12-23] MEDS: GABAPENTIN 300 MG CAP PO SCH ×3 (10:02→21:35)
[2020-12-23] MEDS: CALCIUM CARBONATE 500 MG TAB CHEW PO SCH ×4 (10:07→22:45)
[2020-12-23] MEDS: DOCUSATE SODIUM 100 MG CAP PO SCH ×2 (10:07→22:47)
--- NOTE | 2020-12-23 11:21 | Discharge Summary ---
Providers - Providers Date of Admission: 12/22/20 19:20 Date of discharge: 12/23/20 Attending physician: AMANDA YO 12/22/20 19:16 Consult to Physician [CONS] Urgent Comment: Dr. Lazcano spoke with Dr. Heath @ 1913 Consulting Provider: EVARISTO HEATH Physician Instructions: Reason For Exam: esrd needing dialysis Primary care physician: MEDICAL RADIATION THERAPIST Hospitalization Reason for admission: esrd, accelerated HTN Condition: Stable Hospital course: 65-year-old female with a past medical history of end-stage renal disease on dialysis Friday, Friday, Friday, seizure, hypertension, DVT in bilateral arms, diabetes, CHF, hypothyroidism, and paraplegia presents to the hospital from dialysis center for elevated blood pressure and also mental status. Patient apparently did not receive dialysis. Triage only states that EMS reported patient was altered and did not receive dialysis due to hypertension. According to the ER record, patient was drowsy, opened eyes to voice, and was able to state her first name but unable to provide any of the history of present illness or reliably follow commands. Patient was found to have a blood pressure of 217/72. Patient treated with antihypertensive therapy and was placed in observation status and admitted to telemetry. On admission, patient was not noted to have no altered sensorium and no lateralizing signs or symptoms. CT scan his head showed no acute abnormalities. Blood pressure stabilized with resumption of home medications. Patient likely had medical noncompliance of medications as reported to me when I saw the patient on hospital day #2. Patient is alert and oriented x3 and wants to go home. Patient will be discharged home on her medications after hemodialysis. Dedicated discharge time 35 minutes Disposition: DC-01 TO HOME OR SELFCARE Final Discharge Diagnosis (Prints w/discharge instructions): Accelerated hypertension, esrd Time spent for discharge: 35 Core Measure Documentation - Palliative Care Palliative Care/ Comfort Measures: Not Applicable - Core Measures Any of the following diagnoses?: none Exam - Constitutional Vitals: Temp Pulse Resp BP Pulse Ox 97.9 F 61 18 172/60 100 12/23/20 08:30 12/23/20 08:30 12/23/20 08:30 12/23/20 08:30 12/23/20 08:30 General appearance: Present: no acute distress, well-nourished - EENT Eyes: Present: PERRL ENT: hearing intact, clear oral mucosa - Neck Neck: Present: supple, normal ROM - Respiratory Respiratory effort: normal Respiratory: bilateral: CTA - Cardiovascular Heart Sounds: Present: S1 & S2. Absent: rub, click - Extremities Extremities: pulses symmetrical, No edema Peripheral Pulses: within normal limits - Abdominal General gastrointestinal: Present: soft, non-tender, non-distended, normal bowel sounds Female genitourinary: Present: normal - Integumentary Integumentary: Present: clear, warm, dry - Musculoskeletal Musculoskeletal: gait normal, strength equal bilaterally - Psychiatric Psychiatric: appropriate mood/affect, intact judgment & insight - Neurologic Neurologic: CNII-XII intact, moves all extremities Plan Activity: advance as tolerated Weight Bearing Status: Non-Weight Bearing Diet: renal Follow up with: PRIMARY CAREMD [Primary Care Provider] - 3-5 Days EVARISTO HEATH MD [Staff Physician] - 7 Days Prescriptions: Docusate Sodium [Colace CAP] 100 mg PO BID #60 capsule carvediloL [Coreg] 5 mg PO BID #50 Gabapentin 600 mg PO TID #90 capsule NIFEdipine XL [Procardia Xl] 30 mg PO Q12HR #60 tab Levothyroxine [Synthroid] 25 mcg PO QDAY #30 Calcium Carbonate [Tums 500MG CHEW] 1,000 mg PO TID #30 tablet
--- NOTE | 2020-12-23 17:57 | Consultation ---
History of Present Illness - Reason for Consult Consult date: 12/23/20 end stage renal disease - History of Present Illness This is a 65 year-old woman with ESRD who presents for altered mentation, high BP Patient usually dialyzes MWF at [facility], went to HD center yesterday per schedule but was unable to be started due to systolic BP>200. Patient noted to be altered as well. Patient seen on HD at time of consult. Denies any recent issues with HD, including dizziness, lightheadedness, cramping, chest pain on HD. She does complain of arm pain and wants to come off HD, but no dyspnea, edema, access issues, nausea, vomiting, headaches. Past History Past Medical History: diabetes, ESRD, heart failure, hypertension, other (See HPI) Past Surgical History: Other (parathyroidectomy, ) Social history: single. denies: smoking, alcohol abuse, prescription drug abuse Family history: diabetes, hypertension Medications and Allergies Allergies Allergy/AdvReac Type Severity Reaction Status Date / Time diphenhydramine HCl Allergy Nausea Verified 11/15/20 14:10 [From Benadryl] Penicillins Allergy Unknown Verified 11/15/20 14:10 Home Medications Medication Instructions Recorded Confirmed Last Taken Type Calcium Carbonate [Tums 500MG CHEW] 1,000 mg PO TID #30 tablet 12/23/20 Unknown Rx Docusate Sodium [Colace CAP] 100 mg PO BID #60 capsule 12/23/20 Unknown Rx Gabapentin 600 mg PO TID #90 capsule 12/23/20 Unknown Rx Levothyroxine [Synthroid] 25 mcg PO QDAY #30 12/23/20 Unknown Rx NIFEdipine XL [Procardia Xl] 30 mg PO Q12HR #60 tab 12/23/20 Unknown Rx carvediloL [Coreg] 5 mg PO BID #50 12/23/20 Unknown Rx Active Meds: Active Medications Acetaminophen (Acetaminophen 325 Mg Tab) 650 mg PO Q4H PRN PRN Reason: Pain MILD(1-3)/Fever >100.5/FERNANDEZ Hydrocodone Bitart/Acetaminophen (Hydrocodone/Acetaminophen 5-325 Mg Tab) 1 each PO Q6HR PRN PRN Reason: PAIN Last Admin: 12/23/20 06:13 Dose: 1 each Documented by: Albuterol (Albuterol 2.5 Mg/3 Ml Nebu) 2.5 mg IH Q4HRT PRN PRN Reason: Shortness Of Breath Calcium Carbonate/Glycine (Calcium Carbonate 500 Mg Tab Chew) 1,000 mg PO TID [facility] Last Admin: 12/23/20 15:33 Dose: Not Given Documented by: Carvedilol (Carvedilol 6.25 Mg Tab) 6.25 mg PO BID [facility] Last Admin: 12/23/20 10:02 Dose: 6.25 mg Documented by: Docusate Sodium (Docusate Sodium 100 Mg Cap) 100 mg PO BID [facility] Last Admin: 12/23/20 10:07 Dose: Not Given Documented by: Gabapentin (Gabapentin 300 Mg Cap) 600 mg PO TID [facility] Last Admin: 12/23/20 15:34 Dose: Not Given Documented by: Hydralazine HCl (Hydralazine 20 Mg/1 Ml Inj) 10 mg IV Q6HR PRN PRN Reason: Hypertension Last Admin: 12/23/20 06:12 Dose: 10 mg Documented by: Sodium Chloride (Nacl 0.9%) 100 mls @ 999 mls/hr IV DOMINICK PRN PRN Reason: Hypotension Levothyroxine Sodium (Levothyroxine 25 Mcg Tab) 25 mcg PO DAILY@0600 [facility] Last Admin: 12/23/20 06:13 Dose: 25 mcg Documented by: Nifedipine (Nifedipine Xl 30 Mg Tab) 30 mg PO Q12HR [facility] Ondansetron HCl (Ondansetron 4 Mg/2 Ml Inj) 4 mg IV Q8H PRN PRN Reason: Nausea And Vomiting Sodium Chloride (Sodium Chloride 0.9% 10 Ml Flush Syringe) 10 ml IV BID [facility] Last Admin: 12/23/20 10:02 Dose: 10 ml Documented by: Sodium Chloride (Sodium Chloride 0.9% 10 Ml Flush Syringe) 10 ml IV PRN PRN PRN Reason: LINE FLUSH Review of Systems All systems: negative (as per HPI- notes arm pain) Exam - Vital Signs Vital signs: Vital Signs Temp Pulse Resp BP Pulse Ox 98.0 F 59 L 18 217/72 97 12/22/20 15:44 12/22/20 15:44 12/22/20 15:44 12/22/20 15:44 12/22/20 15:44 - Physical Exam Narrative exam: Constitutional: no acute distress Head: NC/AT Neck: supple Lungs: clear to auscultation CV: RRR, no M/R/G Abdomen: soft, non-tender, bowel sounds present Back: nontender Extremities: no edema, pulses WNL Skin: intact Neuro: no focal deficits, alert and oriented x4 Results - Lab Results 12/22/20 18:09 12/23/20 05:44 Most recent lab results Calcium 8.3 mg/dL (8.4-10.2) L 12/23/20 05:44 Assessment and Plan This is a 65 year old woman who presents with altered mentation, hypertensive crisis. # ESRD: HD today for solute, volume clearance. Next HD prn, likely 4/5 per usual schedule - daily labs - renally dose meds - avoid nephrotoxins - renal diet # Anemia: last hemoglobin 11.3, no indication for ESAs # Hyperkalemia: HD today, mildly elevated for ESRD # HTN: UF as tolerated. BP remains above goal but improved from admission # Secondary Hyperparathyroidism: continue home binders as needed
[2020-12-23] MEDS ORDERED: NIFEdipine XL 30 MG TAB PO SCH (22:00)
[2020-12-24] MEDS: LEVOTHYROXINE 25 MCG TAB PO SCH (06:24)
[2020-12-24 08:15] VITALS: BP 147/62
[2020-12-24] MEDS: GABAPENTIN 300 MG CAP PO SCH (09:53)
[2020-12-24] MEDS: carvediloL 6.25 MG TAB PO SCH (09:54)
[2020-12-24] MEDS: CALCIUM CARBONATE 500 MG TAB CHEW PO SCH (10:00)
[2020-12-24] MEDS ORDERED: NIFEdipine XL 60 MG TAB PO SCH (10:00)
[2020-12-24] MEDS: DOCUSATE SODIUM 100 MG CAP PO SCH (10:00)
== END 2020-12-24 12:09 | disposition home or self-care (01) ==
LOC: ED 15:24 → 4A 19:20
PROVIDERS: ADMIT Internal Medicine; ATTEND Hospitalist
DX: I13.2 Hypertensive heart and chronic kidney disease with heart failure and with stage 5 chronic kidney disease, or end stage renal disease (principal); I50.9 Heart failure, unspecified; N18.6 End stage renal disease; E11.22 Type 2 diabetes mellitus with diabetic chronic kidney disease; D63.1 Anemia in chronic kidney disease; E03.9 Hypothyroidism, unspecified; R56.9 Unspecified convulsions; G93.40 Encephalopathy, unspecified; E87.5 Hyperkalemia; N25.81 Secondary hyperparathyroidism of renal origin; J90 Pleural effusion, not elsewhere classified; Z86.718 Personal history of other venous thrombosis and embolism; Z98.890 Other specified postprocedural states; Z99.2 Dependence on renal dialysis; Z79.899 Other long term (current) drug therapy
CPT/HCPCS: 36415; 70450; 71045; 80048; 80053; 80061; 80074; 82140; 82550; 82553; 82962; 84439; 84443; 84484; 85025; 85610; 85730; 87641; 93005; 94644; 96365; 96375; 96376; 99285; G0378; J0360; J0610; 80320; G0480; J1815

== ENCOUNTER 2020-12-25 20:32 | Emergency (ER) | payer MEDICARE ==
--- NOTE | 2020-12-25 23:04 | Event Note ---
ED Screening Note ED Screening Note: This is a 65-year-old female with history of several medical concerns including condition including hypertension diastolic heart failure end-stage renal disease, hypothyroidism, anemia, mitral stenosis, aortic stenosis who presents with upper body pain. CBC chemistry ordered This initial assessment/diagnostic orders/clinical plan/treatment(s) is/are subject to change based on patients health status, clinical progression and re- assessment by fellow clinical providers in the ED. Further treatment and workup at subsequent clinical providers discretion. Patient/guardian urged not to elope from the ED as their condition may be serious if not clinically assessed and managed.
[2020-12-25 23:36] LABS: Basophils # (Auto) 0.1 K/mm3 (0.0-0.1); Basophils % (Auto) 0.9 % (0.0-1.8); Eosinophils # (Auto) 0.3 K/mm3 (0.0-0.4); Eosinophils % (Auto) 4.4 % (0.0-4.3); Hematocrit 37.2 % (30.3-42.9); Hemoglobin 11.9 gm/dl (10.1-14.3); Lymphocytes # (Auto) 0.5 K/mm3 (1.2-5.4); Lymphocytes % (Auto) 8.6 % (13.4-35.0); Mean Corpuscular HGB Conc 32 % (30-34); Mean Corpuscular Volume 103 fl (79-97); Monocytes # (Auto) 0.6 K/mm3 (0.0-0.8); Monocytes % (Auto) 10.8 % (0.0-7.3); Platelet Count 182 K/mm3 (140-440); Red Cell Distribution Width 15.1 % (13.2-15.2)
[2020-12-26 00:39] LABS: Albumin 3.4 g/dL (3.9-5); Blood Urea Nitrogen 37 mg/dL (7-17); Calcium 8.5 mg/dL (8.4-10.2); Hemolysis Index 9
[2020-12-26 00:40] LABS: Alanine Aminotransferase < 5 units/L (7-56); BUN/Creatinine Ratio 7
--- NOTE | 2020-12-26 06:54 | Emergency Department Report ---
ED General Adult HPI - General Chief complaint: Pain General Stated complaint: UPPER BODY PAIN Time Seen by Provider: 12/26/20 06:05 Source: patient, EMS Mode of arrival: Wheelchair Limitations: Physical Limitation - History of Present Illness Initial comments: 65-year-old female with history of paraplegia, hypertension, ESRD, chronic upper body pain, presents to ED with complaint of upper body pain. Patient states she ran out of her pain medication at home. Unable to remember the name of the medication that she takes. Patient states her doctor is unable to give her a refill at this time. Patient states she has chronic pain in bilateral should ers, arms, and hands. Location: left, right, upper extremity Severity scale (0 -10): 10 Quality: aching Consistency: constant Improves with: medication Worsens with: none Associated Symptoms: denies other symptoms Treatments Prior to Arrival: none - Related Data Previous Rx's Medication Instructions Recorded Last Taken Type Calcium Carbonate [Tums 500MG CHEW] 1,000 mg PO TID #30 tablet 12/23/20 Unknown Rx Docusate Sodium [Colace CAP] 100 mg PO BID #60 capsule 12/23/20 Unknown Rx Gabapentin 600 mg PO TID #90 capsule 12/23/20 Unknown Rx Levothyroxine [Synthroid] 25 mcg PO QDAY #30 12/23/20 Unknown Rx carvediloL [Coreg] 5 mg PO BID #50 12/23/20 Unknown Rx NIFEdipine XL [Procardia Xl] 60 mg PO Q12HR #60 tab 12/24/20 Unknown Rx Allergies Allergy/AdvReac Type Severity Reaction Status Date / Time diphenhydramine HCl Allergy Nausea Verified 11/15/20 14:10 [From Benadryl] Penicillins Allergy Unknown Verified 11/15/20 14:10 ED Review of Systems ROS: Stated complaint: UPPER BODY PAIN Other details as noted in HPI Comment: All other systems reviewed and negative Constitutional: denies: fever Musculoskeletal: as per HPI ED Past Medical Hx - Past Medical History Previous Medical History?: Yes Hx Hypertension: Yes Hx Congestive Heart Failure: Yes Hx Diabetes: Yes Hx Deep Vein Thrombosis: Yes Hx Renal Disease: Yes (ESRD) Hx Seizures: Yes Hx Asthma: No Hx COPD: No Hx HIV: No Additional medical history: thyroid dz, dialysis MWF, paralysis lower extremities - Surgical History Past Surgical History?: Yes Additional Surgical History: peritoneal dialysis, parathyroid removed, and right thyroid removed per family - Social History Smoking Status: Never Smoker - Medications Home Medications: Home Medications Medication Instructions Recorded Confirmed Last Taken Type Calcium Carbonate [Tums 500MG CHEW] 1,000 mg PO TID #30 tablet 12/23/20 Unknown Rx Docusate Sodium [Colace CAP] 100 mg PO BID #60 capsule 12/23/20 Unknown Rx Gabapentin 600 mg PO TID #90 capsule 12/23/20 Unknown Rx Levothyroxine [Synthroid] 25 mcg PO QDAY #30 12/23/20 Unknown Rx carvediloL [Coreg] 5 mg PO BID #50 12/23/20 Unknown Rx NIFEdipine XL [Procardia Xl] 60 mg PO Q12HR #60 tab 12/24/20 Unknown Rx ED Physical Exam - General Limitations: Physical Limitation General appearance: alert, in no apparent distress - Head Head exam: Present: atraumatic, normocephalic - Eye Eye exam: Present: normal appearance, EOMI - ENT ENT exam: Present: mucous membranes moist - Neck Neck exam: Present: normal inspection - Respiratory Respiratory exam: Present: normal lung sounds bilaterally. Absent: respiratory distress - Cardiovascular Cardiovascular Exam: Present: regular rate, normal rhythm - GI/Abdominal GI/Abdominal exam: Present: soft. Absent: distended, tenderness - Extremities Exam Extremities exam: Present: normal inspection - Neurological Exam Neurological exam: Present: alert, oriented X3 - Psychiatric Psychiatric exam: Present: normal affect, normal mood - Skin Skin exam: Present: warm, dry, intact, normal color ED Course Vital Signs 12/26/20 12/26/20 12/26/20 05:34 06:00 11:23 Temperature 98.2 F Pulse Rate 67 71 68 Respiratory 16 12 16 Rate Blood Pressure 226/68 189/63 210/86 [Left] O2 Sat by Pulse 97 95 100 Oximetry ED Medical Decision Making - Lab Data Result diagrams: 12/25/20 23:08 12/25/20 23:08 - Medical Decision Making 65-year-old female presents to ED requesting medication refill for chronic upper body pain. Patient has been advised that we do not give refills for chronic pain. Patient has history of ESRD. Labs have been drawn, potassium was normal. Blood pressure is elevated, however this is likely because patient has missed her doses of her home medications since she has been in the waiting room all night. Patient will be discharged at this time. Outpatient follow-up advised, return precautions given. - Differential Diagnosis Chronic pain Critical care attestation.: If time is entered above; I have spent that time in minutes in the direct care of this critically ill patient, excluding procedure time. ED Disposition Clinical Impression: Chronic pain Disposition: DC-01 TO HOME OR SELFCARE Is pt being admited?: No Condition: Stable Referrals: PRIMARY CARE [Primary Care Provider] - 3-5 Days [facility] [Provider Group] - 3-5 Days Time of Disposition: 06:52
[2020-12-26 11:24] VITALS: BP 210/86
== END 2020-12-26 15:00 | disposition home or self-care (01) ==
LOC: ED 20:32
DX: G89.29 Other chronic pain (principal); I11.0 Hypertensive heart disease with heart failure; I50.9 Heart failure, unspecified; E11.9 Type 2 diabetes mellitus without complications; R56.9 Unspecified convulsions; Z98.890 Other specified postprocedural states; Z79.899 Other long term (current) drug therapy; Z88.0 Allergy status to penicillin; Z88.8 Allergy status to other drugs, medicaments and biological substances
CPT/HCPCS: 36415; 80053; 83690; 85025